=== PATIENT | male | born 1960 | race Caucasian/White ===

== ENCOUNTER → 2017-05-14 08:46 | Outpatient (CLI) | payer MEDICARE, SELFPAY ==
[2017-05-14 14:15] LABS: Alanine Aminotransferase 40 U/L (12-78); Albumin Level 3.2 gm/dL (3.4-5.0); Albumin/Globulin Ratio 0.8 (1.1-1.8); Alkaline Phosphatase 143 U/L (46-116); Anion Gap 12.8 mEq/L (5-15); Aspartate Amino Transferase 22 U/L (15-37); Bilirubin,Total 0.7 mg/dL (0.2-1.0); Blood Urea Nitrogen 8 mg/dL (7-18); Calcium 8.2 mg/dL (8.5-10.1); Carbon Dioxide 28 mmol/L (21.0-32.0); Chloride 101 mmol/L (98-107); Cholesterol 143 mg/dL (140-200); Creatinine,Serum 0.87 mg/dL (0.70-1.30); Estimated Glomerular Filt Rate 91 ml/min (>60); GFR (African American) 110 ML/MIN (>60); Globulin 3.9 gm/dl (1.3-3.2); Glucose 144 mg/dL (74-106); HDL Cholesterol 48 mg/dL (27-67); LDL Cholesterol 68 mg/dL (0-130); Potassium 3.8 mmoL/L (3.5-5.1); Sodium 138 mmol/L (136-145); Total Protein,Serum 7.1 gm/dL (6.4-8.2); Triglycerides 137 mg/dL (30-200); VLDL Cholesterol 27 mg/dL (0-40)
[2017-05-14 14:36] LABS: Ethyl Alcohol 0 mg/dL (0-99)
[2017-05-14 14:57] LABS: Basophils % 0.4 % (0.1-2.0); Eosinophils # 0.3 K/mm3 (0.0-0.4); Eosinophils % 3.6 % (0.1-12.0); Hematocrit 42.9 % (42.0-52.0); Hemoglobin 14.2 g/dL (14.1-18.0); Lymphocytes # 2.5 K/mm3 (0.7-4.5); Lymphocytes % 27.4 K/mm3 (10-50); Mean Corpuscular Hemoglobin 29.7 pg (27.0-31.2); Mean Corpuscular Volume 90.1 fl (80-94); Monocytes # 0.4 K/mm3 (0.1-1.0); Monocytes % 4.5 % (1.7-9.3); Neutrophils # 5.8 K/mm3 (1.8-7.8); Neutrophils % 64.1 % (37.0-80.0); Platelet Count 149 K/mm3 (142-424); Red Blood Count 4.77 M/mm3 (4.60-6.20); Red Cell Distribution Width 14.8 % (11.5-17.5)
[2017-05-14 15:57] LABS: INR 1.02 (0.9-1.1)
== END ==
PROVIDERS: PCP Internal Medicine Adolescent Medicine; Visit Provider Internal Medicine Adolescent Medicine
DX: K70.30 Alcoholic cirrhosis of liver without ascites (principal)
CPT/HCPCS: 36415; 80053; 80061; 85025; 85610

== ENCOUNTER → 2017-09-03 08:16 | Outpatient (CLI) | payer MEDICARE, SELFPAY ==
[2017-09-03 14:25] LABS: Alanine Aminotransferase 27 U/L (12-78); Albumin Level 3.1 gm/dL (3.4-5.0); Albumin/Globulin Ratio 0.8 (1.1-1.8); Alkaline Phosphatase 120 U/L (46-116); Anion Gap 11.5 mEq/L (5-15); Aspartate Amino Transferase 26 U/L (15-37); Bilirubin,Total 0.6 mg/dL (0.2-1.0); Blood Urea Nitrogen 8 mg/dL (7-18); Calcium 8.1 mg/dL (8.5-10.1); Carbon Dioxide 29 mmol/L (21.0-32.0); Chloride 101 mmol/L (98-107); Chol/HDL Ratio 3.1 (1-3.5); Cholesterol 144 mg/dL (140-200); Creatinine,Serum 1.01 mg/dL (0.70-1.30); Estimated Glomerular Filt Rate 77 ml/min (>60); GFR (African American) 93 ML/MIN (>60); Globulin 3.9 gm/dl (1.3-3.2); Glucose 138 mg/dL (74-106); HDL Cholesterol 47 mg/dL (27-67); LDL Cholesterol 77 mg/dL (0-130); Potassium 3.5 mmoL/L (3.5-5.1); Sodium 138 mmol/L (136-145); Triglycerides 98 mg/dL (30-200); VLDL Cholesterol 20 mg/dL (0-40)
[2017-09-03 14:49] LABS: Hemoglobin A1C 5.5 % (0.0-7.0)
== END ==
PROVIDERS: Visit Provider Internal Medicine Adolescent Medicine
DX: E11.9 Type 2 diabetes mellitus without complications (principal); E78.5 Hyperlipidemia, unspecified
CPT/HCPCS: 36415; 80053; 80061; 83036

== ENCOUNTER → 2017-09-30 08:02 | Outpatient (CLI) | payer MEDICARE, SELFPAY ==
[2017-09-30 13:27] LABS: Basophils # 0.1 K/mm3 (0-0.2); Basophils % 1.1 % (0.1-2.0); Eosinophils # 0.2 K/mm3 (0.0-0.4); Eosinophils % 2.8 % (0.1-12.0); Hematocrit 43.8 % (42.0-52.0); Lymphocytes # 2.6 K/mm3 (0.7-4.5); Lymphocytes % 46.7 K/mm3 (10-50); Mean Corpuscular Volume 93.8 fl (80-94); Mean Platelet Volume 7.4 fl (7.4-10.4); Monocytes # 0.5 K/mm3 (0.1-1.0); Monocytes % 8.8 % (1.7-9.3); Neutrophils # 2.3 K/mm3 (1.8-7.8); Neutrophils % 40.7 % (37.0-80.0); Platelet Count 145 K/mm3 (142-424); Red Blood Count 4.67 M/mm3 (4.60-6.20); Red Cell Distribution Width 16.6 % (11.5-17.5); White Blood Count 5.6 K/mm3 (4.8-10.8)
[2017-09-30 13:44] LABS: Alanine Aminotransferase 37 U/L (12-78); Albumin Level 2.9 gm/dL (3.4-5.0); Albumin/Globulin Ratio 0.7 (1.1-1.8); Alkaline Phosphatase 133 U/L (46-116); Anion Gap 11.8 mEq/L (5-15); Aspartate Amino Transferase 25 U/L (15-37); Bilirubin,Total 0.5 mg/dL (0.2-1.0); Blood Urea Nitrogen 8 mg/dL (7-18); C-Reactive Protein 2.3 mg/L (0.0-0.9); Calcium 8.5 mg/dL (8.5-10.1); Carbon Dioxide 30 mmol/L (21.0-32.0); Chloride 103 mmol/L (98-107); Creatinine,Serum 0.81 mg/dL (0.70-1.30); Estimated Glomerular Filt Rate 99 ml/min (>60); GFR (African American) 120 ML/MIN (>60); Globulin 3.9 gm/dl (1.3-3.2); Glucose 125 mg/dL (74-106); Potassium 3.8 mmoL/L (3.5-5.1); Sodium 141 mmol/L (136-145); Total Protein,Serum 6.8 gm/dL (6.4-8.2)
[2017-09-30 15:11] LABS: Erythrocyte Sedimentation Rate 16 mm/hr (0-20)
== END ==
PROVIDERS: Visit Provider Nurse Practitioner Family
DX: M06.9 Rheumatoid arthritis, unspecified (principal)
CPT/HCPCS: 36415; 80053; 85025; 85651; 86140; 86480

== ENCOUNTER → 2018-02-21 10:50 | Outpatient (CLI) | payer MEDICARE, SELFPAY ==
--- NOTE | 2018-02-21 10:54 | FL_ITS ---
FL barium swallow modified INDICATION: ITS.REASON: DYSPHAGIA difficulty swallowing. TECHNIQUE following esophageal dilatation 2 months ago. More difficulty with solid foods immediate. Particularly note difficulty swallowing pills TECHNIQUE & FINDINGS: Study performed conjunction with these pathologist Mildred dinh. . 3 minutes 50 seconds fluoroscopy Patient study the lateral projection with video esophagram recording. Various barium consistencies utilized to study swallowing mechanism.. Thin barium from cup, and with straw: No aspiration observed good strength the swallowing mechanism Pudding, puree, Mechanical soft barium on cereal bar and cracker all appears satisfactory: Good strength the swallowing. No residual This was followed by a thin barium Wash Barium pill was ingested with thin barium wash And readily passed with no restriction at the cervical esophagus. However subsequent limited due to the only dilated fluid-filled thoracic esophagus. 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 The barium pill does not pass through the GE junction and remains for prolonged period of time until for the most part disolved and finally does pass at the distal esophagus. It this would imply a significant difficulty with solid foods and the patient's various ingested medications. IMPRESSION: Overall satisfactory strength and coordination of the swallowing mechanism with liquid barium as well as other consistencies studied.. No aspiration. No significant penetration. Normal appearance of the cervical esophagus region However Limited images thoracic esophagus included show marked narrowing at GE junction reflecting the known/reported stricture here.. Fluid-filled distended appearance seen at the entire thoracic esophagus. Liquid material is very slow to pass through this markedly narrowed GE junction region. The pill did not pass GE junction.- Rather lingering distal esophagus until it Eventually disolved. These images do show very significant restriction at GE junction -patient would not appear to be able to pass most solid food nor many of this medication See review recommendations from speech pathology
--- NOTE | 2018-02-21 12:05 | HMH.SLMBS2 ---
Speech & Language Evaluation Speech/Language Mod Barium Swallow Start: 02/21/18 11:49 Freq: once Status: Complete Protocol: Document 02/21/18 11:49 JUAN (Rec: 02/21/18 12:03 JUAN [id number]) MBS Recommendations Diet Dietary Recommendations Regular Referrals/Other Recommended Referrals GI Consult Mod Barium Swallow Impressions Summary and Impressions Oral Phase Impression No Impairment (WFL) Pharyngeal Phase Impression No Impairment (WFL) Speech/Language MBS Assessment/Goals/Plan Assessment Date of Evaluation: 02/21/18 Evaluation Type Initial Certification Assessment/Problems Pt. reports difficuty with swallowing following espophogus stretching about 2 months ago. Increased difficulty with solid foods and meat. Reports pills and food will sometimes go down fine but come back up in to throat after swallowing. Does Patient Qualify for Service No Qualify/Failure Comment No aspiration or penetration of solids or liquids seen on MBS. Recommendations PHYSICIAN CERTIFICATION: The specified therapy services are required, authorized, and reviewed every 30 days. Diet Recommendations Normal Liquid Type Recommendations Normal/Thin SL Swallow Guidelines Standard Aspiration Prec. Dysphagia Swallow Precautions/Strategies Sitting Upright (90 deg) Comment Pt does not qualify for speech therapy services. No aspiration or penetration observed during study. Plan Pt/Guardian verbally ack understanding Yes of dx/prognosis/goals Pt/Guardian verbally ack understanding Yes of/consent to tx prog G -code Required Yes G-CODES ST Current Status [id number] ST Current Status Modifier CI-At least 1% but less than 20% impaired, limited or restricted ST Goal Status [id number] ST Goal Status Modifier CI-At least 1% but less than 20% impaired, limited or restricted Education Instructions provided Pt advised to follow up with re: swallowing difficulty with pills and solid food. Pt/Caregiver able to recall information Able to recall/restate Reinforcement needed No Mod Barium Swallow Setup Exam Setup Radiologist Compa Alas Level of Consciousness Aw
== END ==
PROVIDERS: PCP Internal Medicine Adolescent Medicine; Visit Provider Internal Medicine Adolescent Medicine
DX: R13.10 Dysphagia, unspecified (principal)
CPT/HCPCS: 70371; 92611

== ENCOUNTER 2018-04-29 20:24 | Observation (INO) ==
[2018-04-29 20:59] LABS: Basophils # 0.1 K/mm3 (0-0.2); Basophils % 0.5 % (0.1-2.0); Eosinophils # 0.2 K/mm3 (0.0-0.4); Eosinophils % 1.6 % (0.1-12.0); Hemoglobin 16.3 g/dL (14.1-18.0); Lymphocytes # 2.5 K/mm3 (0.7-4.5); Lymphocytes % 21.5 % (10-50); Mean Corpuscular HGB Conc 32.6 g/dL (31.8-35.4); Mean Corpuscular Hemoglobin 33.4 pg (27.0-31.2); Mean Corpuscular Volume 102.4 fl (80-94); Mean Platelet Volume 8.1 fl (7.4-10.4); Monocytes # 0.9 K/mm3 (0.1-1.0); Monocytes % 7.7 % (1.7-9.3); Neutrophils % 68.7 % (37.0-80.0); Platelet Count 112 K/mm3 (142-424); Red Blood Count 4.88 M/mm3 (4.60-6.20); Red Cell Distribution Width 15.6 % (11.5-17.5); White Blood Count 11.6 K/mm3 (4.8-10.8)
--- NOTE | 2018-04-29 21:07 | Emergency Department Note ---
ED Disposition Clinical Impression: Esophagitis, Hypokalemia Disposition: Admitted as Observation Condition on Discharge: Good Instructions: DI for Diarrhea and Traveler's Diarrhea -- Adult, DI for Diarrhea and Traveler's Diarrhea -- Child, DI for Nausea -- Adult, DI for Nausea -- Child Referrals: Too Lau MD [Primary Care Provider] - - Critical Care Critical Care Time: No Attestation: On 04/29/18, the high probability of a clinically significant, sudden or life th reatening deterioration of the following system(s) required my full and direct attention, intervention and personal management. The time I documented below is in addition to time spent performing reported procedures but includes the following listed in this critical care notation. Medical Decision Making - Medical Records Medical records reviewed: Yes: I reviewed the patient's medical records. - Yury Inquiry Pt receiving controlled substance: No Vital Signs: 04/29/18 20:35 04/29/18 21:05 Temperature 98.8 F Temperature Source Oral Pulse Rate [Right] 135 H 111 H Respiratory Rate 20 Blood Pressure [Right Arm] 149/111 H 149/82 H Blood Pressure Mean [Right Arm] 123 104 02 Sat by Pulse Oximetry 95 - Lab Data Lab results reviewed: Yes: I reviewed the patient's lab results. Lab Results 04/29/18 20:50: Influenza Type A Ag Negative, Influenza Type B Ag Negative 04/29/18 20:52: WBC 11.6 H, RBC 4.88, Hgb 16.3, Hct 50.0, MCV 102.4 H, MCH 33.4 H, MCHC 32.6, RDW 15.6, Plt Count 112 L, MPV 8.1, Neut % (Auto) 68.7, Lymph % (Auto) 21.5, King % (Auto) 7.7, Eos % (Auto) 1.6, Baso % (Auto) 0.5, Neut # (Auto) 8.0 H, Lymph # (Auto) 2.5, King # (Auto) 0.9, Eos # (Auto) 0.2, Baso # (Auto) 0.1 04/29/18 20:52: Sodium 130 L, Potassium 2.6 L*, Chloride 89 L, Carbon Dioxide 24, Anion Gap 19.6 H, BUN 20 H, Creatinine 1.18, Estimated Creat Clear 81, Estimated GFR 64, Est GFR ( Amer) 77, Glucose 127 H, Calcium 8.7, Total Bilirubin 1.2 H, AST 37, ALT 44, Alkaline Phosphatase 147 H, C-Reactive Protein 32.3 H, Total Protein 8.4 H, Albumin 3.0 L, Globulin 5.4 H, Albumin/Globulin Ratio 0.6 L 04/29/18 20:52: ESR 29 H 04/29/18 20:52: Troponin I < 0.02, Amylase 60, Plasma/Serum Alcohol 0 04/29/18 20:52: Lipase 110 04/29/18 21:46: Urine Color Yellow, Urine Appearance Clear, Urine pH 6.0, Ur Specific [place] 1.025, Urine Protein 2+, Urine Glucose (UA) Negative, Urine Ketones 2+, Urine Blood 2+, Urine Nitrate Negative, Urine Bilirubin Negative, Urine Urobilinogen 1.0, Ur Leukocyte Esterase Negative, Urine RBC 5-10, Urine WBC Occasional, Urine Bacteria 1+, Hyaline Casts 3-5, Urine Mucus 1+ Result diagrams: 04/29/18 20:52 04/29/18 20:52 Orders (Tests/Meds): ED MEDICATIONS Generic Name Dose Route Start Last Admin Trade Name Freq PRN Reason Stop Dose Admin Sodium Chloride 1,000 mls @ 999 mls/hr 04/29/18 20:45 04/29/18 21:02 Sod Chlor 0.9% 1000ml Bag IV 04/29/18 21:45 999 mls/hr .Q1H1M DI Administration Sodium Chloride 10 ml 04/29/18 20:40 Saline Flush 10ml Syringe IV 05/29/18 20:39 NEEDED PRN Maintain IV Site Discontinued Medications Generic Name Dose Route Start Last Admin Trade Name Freq PRN Reason Stop Dose Admin Famotidine 20 mg 04/29/18 22:28 04/29/18 22:38 Pepcid 20mg/2ml Vial IV 04/29/18 22:29 20 mg ONCE ONE Administration Metoclopramide HCl 10 mg 04/29/18 22:28 04/29/18 22:38 Reglan 10mg/2ml Vial IVP 04/29/18 22:29 10 mg ONCE ONE Administration Ondansetron HCl 4 mg 04/29/18 20:39 04/29/18 21:02 Zofran 4mg/2ml Vial IV 04/29/18 20:40 4 mg ONCE ONE Administration ORDERS Category Date Time Status CT abdomen pelvis wo con Stat Cat Scan 04/29/18 21:19 Taken Chest XR 2 view (NOT portable) [XR chest 2V] Stat Exams 04/29/18 22:06 Taken Diarrhea Panel, PCR Stat Lab 04/29/18 20:38 Ordered Urinalysis and Microscopic Stat Lab 04/29/18 21:46 Ordered - Radiology Data #1 Image(s): Chest Image Reviewed: Yes I reviewed the patient's radiology image Preliminary Findings: Normal/NAD - CT Data CT Scan: Abdomen, Pelvis Time Received: 23:[address] Reviewed: Yes: I have viewed the radiologist's interpretation Preliminary Findings: Abnormal (see report ) - Physician Consults Physician Consulted: anil Reason -: Admission Nausea/Vomiting/Diarrhea HPI - General Chief complaint: Nausea/Vomiting/Diarrhea Stated complaint: N/V/D since wednesday Time Seen by Provider: 04/29/18 20:45 Mode of Arrival: Ambulatory Limitations: No Limitations Description of Symptoms (Recalled from ER Triage Doc. by RN): Pt states for the last 4 days he has had NVD, denies abdominal pain, fever, or any other s/s. - History of Present Illness HPI Narrative: pt with hx of esophageal disease - pt with no fever but has had diarrhea today w/o blood and has dec po intake with vomiting MD complaint: nausea, vomiting, diarrhea Onset (ago): day(s) Associated Abdominal Pain: Yes Location of pain: epigastric Severity: moderate Associated symptoms: denies other symptoms - Related Data Home Medications Medication Instructions Recorded Confirmed Atorvastatin Calcium [Lipitor 40mg 40 mg PO DAILY 12/31/17 04/29/18 Tablet] Buspirone HCl [Buspar 10mg tablet] 10 mg PO DAILY 12/31/17 04/29/18 Carvedilol [Carvedilol 25mg Tab] 25 mg PO DAILY 12/31/17 04/29/18 Certolizumab Pegol [Cimzia] 400 mg SQ MONTHLY 12/31/17 04/29/18 Citalopram Hydrobromide [Celexa 40 mg PO DAILY 12/31/17 04/29/18 40mg Tablet] Furosemide [Lasix 20mg tab] 20 mg PO DAILY 12/31/17 04/29/18 Hydroxychloroquine Sulfate 200 mg PO BID 12/31/17 04/29/18 [Plaquenil 200mg tablet] Levothyroxine Sodium [Synthroid 50 mcg PO DAILY 12/31/17 04/29/18 50mcg (0.05mg) tab] Metformin HCl [Metformin 500mg 500 mg PO BID 12/31/17 04/29/18 Tablet] Omeprazole [Omeprazole 20mg 20 mg PO DAILY 12/31/17 04/29/18 Capsule] Pregabalin [Lyrica 150mg Cap] 150 mg PO DAILY 12/31/17 04/29/18 Sitagliptin Phosphate [Januvia 100 mg PO DAILY 12/31/17 04/29/18 100mg tablet] Trazodone HCl 200 mg PO DAILY 12/31/17 04/29/18 Hydrocodone/Acetaminophen [Lortab 1 tab PO BID 04/29/18 04/29/18 7.5/325mg tablet] Allergies Allergy/AdvReac Type Severity Reaction Status Date / Time No Known Allergies Allergy Verified 12/31/17 14:03 [facility] History - Hepatitis A Screen Drug use history?: No High risk sexual behaviors?: No History of sexually transmitted infection?: No Currently employed?: No Childcare worker?: No Do you have indoor plumbing?: Yes Do you have electricity?: Yes Attestation statement:: This patient has been screened for Hepatitis A risk factors. I have reviewed the patient's past medical history: Yes Medical History: Reports:: Asthma, Depression, Diabetes Mellitus Type 2, Gastroesophageal Reflux Disease(GERD), Hyperlipidemia, Hypertension Denies:: Diabetes Mellitus Type 1, Internal Pacemaker, Lung Disease, Seizures Other Medical History: Reports: Other (Obesity) Other Surgeries: No: Pacemaker - Social History Smoking Status: Never smoker Alcohol Intake: former Alcohol Intake Frequency:: 3 or more drinks per day - Psychiatric History Expresses thoughts of harming self/others: None Suicide Plan Description: No Plan Pschychiatric History:: Reports:: Depression ROS Obtained: Yes All systems reviewed & no additional complaints - Constitutional Constitutional: Denies fever(s) - Eyes Eyes: Denies change in vision - ENT Ears, Nose, Mouth, and Throat: Denies sore throat - Cardiovascular Cardiovascular: Denies chest pain at rest - Respiratory Respiratory: No cough - Gastrointestinal Gastrointestingal: Reports: diarrhea, nausea, vomiting. Denies: abdominal pain, black, tarry stools - Genitourinary Male Genitourinary: Denies hematuria - Musculoskeletal Musculoskeletal: Denies neck pain - Integumentary/Breasts Skin/Breast: Denies rash - Neurologic Neurologic: Denies seizure-like activity Physical Exam - General General appearance: alert - Head Head exam: normocephalic - Eye Eye exam: Present: PERRL, EOMI, scleral icterus - ENT ENT exam: Present: mucous membranes dry - Neck Neck exam: Present: trachea midline - Respiratory Respiratory exam: Present: normal lung sounds bilaterally. Absent: respiratory distress - Cardiovascular Cardiovascular exam: Present: regular rate, systolic murmur, +S4 - Abdominal Exam Abdominal exam: Present: soft, tenderness Abdominal tenderness: Present: epigastrium, moderate - Extremities Exam Extremities exam: Present: full ROM - Neurological Exam Neurological exam: Present: alert, oriented X3, CN II-XII intact - Psychiatric Psychiatric exam: Present: normal affect - Skin Skin exam: Absent: rash
[2018-04-29 21:13] LABS: Albumin/Globulin Ratio 0.6 (1.1-1.8); Anion Gap 19.6 mEq/L (5-15); Bilirubin,Total 1.2 mg/dL (0.2-1.0); Calcium 8.7 mg/dL (8.5-10.1); Globulin 5.4 gm/dl (1.3-3.2); Total Protein,Serum 8.4 gm/dL (6.4-8.2)
[2018-04-29 21:14] LABS: C-Reactive Protein 32.3 mg/L (0.0-0.9)
[2018-04-29 21:15] LABS: Potassium 2.6 mmoL/L (3.5-5.1)
[2018-04-29 21:51] LABS: Microscopic, Urine URINE MICROSCOPIC (MICROSCOPIC)
[2018-04-29 21:53] LABS: Appearance,Urine CLEAR (Clear); Blood, Urine 2+ (Negative); Color,Urine YELLOW (Yellow); Glucose,Urine (UA) Negative (Negative); Ketones,Urine 2+ (Negative); Leukocyte Esterase,Urine Negative (Negative); Protein,Urine 2+ (Negative); Specific Gravity, Urine 1.025 (1.005-1.030)
[2018-04-29 22:01] LABS: Bacteria,Urine 1+ /lpf; Bilirubin,Urine Negative (Negative); Mucus,Urine 1+ /lpf; WBC,Urine Occasional #/hpf (0-3)
[2018-04-29 22:27] LABS: Amylase 60 U/L (25-115)
[2018-04-29 22:29] LABS: Ethyl Alcohol 0 mg/dL (0-99)
[2018-04-30 06:35] LABS: Anion Gap 18.6 mEq/L (5-15)
[2018-04-30 06:38] LABS: Potassium 2.6 mmoL/L (3.5-5.1)
[2018-04-30 06:50] LABS: Basophils # 0.1 K/mm3 (0-0.2); Basophils % 0.5 % (0.1-2.0); Eosinophils # 0.2 K/mm3 (0.0-0.4); Lymphocytes # 2.5 K/mm3 (0.7-4.5); Lymphocytes % 24.1 % (10-50); Mean Corpuscular HGB Conc 32.3 g/dL (31.8-35.4); Mean Corpuscular Hemoglobin 33.4 pg (27.0-31.2); Mean Corpuscular Volume 103.2 fl (80-94); Mean Platelet Volume 7.6 fl (7.4-10.4); Monocytes % 9.4 % (1.7-9.3); Neutrophils # 6.8 K/mm3 (1.8-7.8); Platelet Count 98 K/mm3 (142-424); Red Blood Count 4.36 M/mm3 (4.60-6.20); Red Cell Distribution Width 15.7 % (11.5-17.5); White Blood Count 10.6 K/mm3 (4.8-10.8)
[2018-04-30 06:56] LABS: Calcium 7.8 mg/dL (8.5-10.1)
[2018-04-30 07:00] LABS: Hemoglobin 14.6 g/dL (14.1-18.0)
--- NOTE | 2018-04-30 10:37 | Pharmacy Consult Notes ---
[facility] Pharmacy VTE Monitoring - Patient Demographics Admission date: 04/30/18 Report Date: 04/30/18 Time: 10:36 Allergies/Adverse Reactions: Patient Allergies No Known Allergies Allergy (Verified 12/31/17 14:03) Height: 1.73 m Weight: 85.757 kg Patient Problems: Current Active Problems Esophagitis (Acute) Hypokalemia (Acute) - VTE Risk Labs: VTE Related Lab Results Hgb 14.6 g/dL (14.1-18.0) D 04/30/18 05:30 Hct 45.0 % (42.0-52.0) 04/30/18 05:30 Plt Count 98 K/mm3 (142-424) L 04/30/18 05:30 BUN 17 mg/dL (7-18) 04/30/18 05:30 Creatinine 1.05 mg/dL (0.70-1.30) 04/30/18 05:30 Estimated Creat Clear 95 mL/min (50-200) 04/30/18 05:30 VTE Score: 4 VTE Risk Level: Low Risk - Prophylaxis Location of Applied Device: Bilateral Lower Extremeties (SUSAN HOSE)
--- NOTE | 2018-04-30 11:45 | H&P/Discharge Summary ---
General - General Admission date:: 04/29/18 Discharge date: 04/30/18 *Admission Date: 04/30/18 *Chief complaint: Nausea, vomiting, dehydration *History of present illness: Mr. Vazquez is a pleasant 58-year-old with history of chronic arthritis who presents with 4 days of gastroenteritis symptoms including diarrhea, nausea, vomiting. Unable to keep anything down at home. Presented to the ER where he was found to have hypokalemia, mild dehydration, and metabolic acidosis. Admitted for fluid rehydration and bowel rest. This morning tolerating p.o. fluids and small amounts of a regular diet. Had no further episodes of diarrhea or emesis during admission. Still feels weak, complains of some arthritic pain due to missing his home medications for the past 4-5 days with his illness. Otherwise denies abdominal pain, chest pain, shortness of breath. [facility] History I have reviewed the patient's past medical history: Yes Medical History: Reports:: Asthma, Depression, Diabetes Mellitus Type 2, Gastroesophageal Reflux Disease(GERD), Hyperlipidemia, Hypertension Denies:: Diabetes Mellitus Type 1, Internal Pacemaker, Lung Disease, Seizures Other Medical History: Reports: Other (Obesity) Other Surgeries: No: Pacemaker - *Social History Educational Level: Completed High School Smoking Status: Never smoker Alcohol Intake: former Alcohol Intake Frequency:: 3 or more drinks per day Occupational Status: disabled - Psychiatric History Expresses thoughts of harming self/others: None Suicide Plan Description: No Plan Pschychiatric History:: Reports:: Depression *Family Hx:: Anemia, Hyperlipidemia, Hypertension Review of Systems - Review of Systems Review of systems:: pertinent systems reviewed and negative unless documented below - *Neurologic Denies seizure-like activity Exam Vital signs and Labs for Last 24 Hours: Temp Pulse Resp BP Pulse Ox 98.6 F 84 20 162/85 H 94 L 04/30/18 11:13 04/30/18 11:13 04/30/18 11:13 04/30/18 11:13 04/30/18 11:13 Laboratory Results - last 24 hr 04/29/18 20:50: Influenza Type A Ag Negative, Influenza Type B Ag Negative 04/29/18 20:52: WBC 11.6 H, RBC 4.88, Hgb 16.3, Hct 50.0, MCV 102.4 H, MCH 33.4 H, MCHC 32.6, RDW 15.6, Plt Count 112 L, MPV 8.1, Neut % (Auto) 68.7, Lymph % (Auto) 21.5, Emanuel % (Auto) 7.7, Eos % (Auto) 1.6, Baso % (Auto) 0.5, Neut # (Auto) 8.0 H, Lymph # (Auto) 2.5, Emanuel # (Auto) 0.9, Eos # (Auto) 0.2, Baso # (Auto) 0.1 04/29/18 20:52: Sodium 130 L, Potassium 2.6 L*, Chloride 89 L, Carbon Dioxide 24, Anion Gap 19.6 H, BUN 20 H, Creatinine 1.18, Estimated Creat Clear 81, Estimated GFR 64, Est GFR ( Amer) 77, Glucose 127 H, Calcium 8.7, Total Bilirubin 1.2 H, AST 37, ALT 44, Alkaline Phosphatase 147 H, C-Reactive Protein 32.3 H, Total Protein 8.4 H, Albumin 3.0 L, Globulin 5.4 H, Albumin/Globulin Ratio 0.6 L 04/29/18 20:52: ESR 29 H 04/29/18 20:52: Troponin I < 0.02, Amylase 60, Plasma/Serum Alcohol 0 04/29/18 20:52: Lipase 110 04/29/18 21:46: Urine Color Yellow, Urine Appearance Clear, Urine pH 6.0, Ur Specific [place] 1.025, Urine Protein 2+, Urine Glucose (UA) Negative, Urine Ketones 2+, Urine Blood 2+, Urine Nitrate Negative, Urine Bilirubin Negative, Urine Urobilinogen 1.0, Ur Leukocyte Esterase Negative, Urine RBC 5-10, Urine WBC Occasional, Urine Bacteria 1+, Hyaline Casts 3-5, Urine Mucus 1+ 04/30/18 02:35: Troponin I < 0.02 04/30/18 05:30: Troponin I < 0.02 04/30/18 05:30: WBC 10.6, RBC 4.36 L, Hgb 14.6 D, Hct 45.0, MCV 103.2 H, MCH 33.4 H, MCHC 32.3, RDW 15.7, Plt Count 98 L, MPV 7.6, Neut % (Auto) 64.0, Lymph % (Auto) 24.1, Emanuel % (Auto) 9.4 H, Eos % (Auto) 2.0, Baso % (Auto) 0.5, Neut # (Auto) 6.8, Lymph # (Auto) 2.5, Emanuel # (Auto) 1.0, Eos # (Auto) 0.2, Baso # (Auto) 0.1 04/30/18 05:30: Sodium 132 L, Potassium 2.6 L*, Chloride 94 L, Carbon Dioxide 22, Anion Gap 18.6 H, BUN 17, Creatinine 1.05, Estimated Creat Clear 95, Estima hannah GFR 73, Est GFR ( Amer) 88, Glucose 107 H, Calcium 7.8 L D, Magnesium 0.7 L 04/30/18 05:45: POC Glucose 99 I & O for Last 24 hours: Intake & Output 04/27/18 04/28/18 04/29/18 04/30/18 23:59 23:59 23:59 23:59 Intake Total 482 / 482 Balance 482 / 482 Weight 82.3 kg 85.757 kg - *Routine HEENT Exam Head: Present: normocephalic, atraumatic Eye: Present: EOMI, PERRL ENT: Present: mucous membranes moist - *Routine Neck Exam Present: supple. Absent: JVD - *Routine Respiratory Exam Present: CTA bilaterally. Absent: prolonged expiratory phase, wheezes, crackles - *Routine Cardiovascular Exam Present: RRR, Normal S1, Normal S2. Absent: murmur - *Routine Abdominal Exam Present: soft, normoactive bowel sounds. Absent: tenderness - *Routine Rectal Exam Patient deferred: visual exam - *Routine Exam Patient deferred: penile exam - *Routine Extremities Exam Absent: cyanosis, clubbing, edema Comments: Multiple joints tender to pain with chronic arthritic changes in elbows, fingers - *Routine Skin Exam Present: intact. Absent: cyanosis, erythema - *Routine Neurological Exam Present: alert, oriented X3. Absent: altered mental status Hospital Course Hospital Course: Admitted for electrolyte repletion, IV fluids, bowel rest. Magnesium and potassium replaced. Tolerating p.o. intake without further episodes. Hemodynamically stable. Results Labs on day of discharge: Labs from last 24 hours 04/30/18 04/30/18 04/30/18 05:45 05:30 05:30 WBC 10.6 RBC 4.36 L Hgb 14.6 D Hct 45.0 MCV 103.2 H MCH 33.4 H MCHC 32.3 RDW 15.7 Plt Count 98 L MPV 7.6 Neut % (Auto) 64.0 Lymph % (Auto) 24.1 Emanuel % (Auto) 9.4 H Eos % (Auto) 2.0 Baso % (Auto) 0.5 Neut # (Auto) 6.8 Lymph # (Auto) 2.5 Emanuel # (Auto) 1.0 Eos # (Auto) 0.2 Baso # (Auto) 0.1 ESR Sodium 132 L Potassium 2.6 L* Chloride 94 L Carbon Dioxide 22 Anion Gap 18.6 H BUN 17 Creatinine 1.05 Estimated Creat Clear 95 Estimated GFR 73 Est GFR ( Amer) 88 Glucose 107 H POC Glucose 99 Calcium 7.8 L D Magnesium 0.7 L Total Bilirubin AST ALT Alkaline Phosphatase Troponin I C-Reactive Protein Total Protein Albumin Globulin Albumin/Globulin Ratio Amylase Lipase Urine Color Urine Appearance Urine pH Ur Specific [place] Urine Protein Urine Glucose (UA) Urine Ketones Urine Blood Urine Nitrate Urine Bilirubin Urine Urobilinogen Ur Leukocyte Esterase Urine RBC Urine WBC Urine Bacteria Hyaline Casts Urine Mucus Plasma/Serum Alcohol Influenza Type A Ag Influenza Type B Ag 04/30/18 04/30/18 04/29/18 05:30 02:35 21:46 WBC RBC Hgb Hct MCV MCH MCHC RDW Plt Count MPV Neut % (Auto) Lymph % (Auto) Emanuel % (Auto) Eos % (Auto) Baso % (Auto) Neut # (Auto) Lymph # (Auto) Emanuel # (Auto) Eos # (Auto) Baso # (Auto) ESR Sodium Potassium Chloride Carbon Dioxide Anion Gap BUN Creatinine Estimated Creat Clear Estimated GFR Est GFR ( Amer) Glucose POC Glucose Calcium Magnesium Total Bilirubin AST ALT Alkaline Phosphatase Troponin I < 0.02 < 0.02 C-Reactive Protein Total Protein Albumin Globulin Albumin/Globulin Ratio Amylase Lipase Urine Color Yellow Urine Appearance Clear Urine pH 6.0 Ur Specific [place] 1.025 Urine Protein 2+ Urine Glucose (UA) Negative Urine Ketones 2+ Urine Blood 2+ Urine Nitrate Negative Urine Bilirubin Negative Urine Urobilinogen 1.0 Ur Leukocyte Esterase Negative Urine RBC 5-10 Urine WBC Occasional Urine Bacteria 1+ Hyaline Casts 3-5 Urine Mucus 1+ Plasma/Serum Alcohol Influenza Type A Ag Influenza Type B Ag 04/29/18 04/29/18 04/29/18 20:52 20:52 20:52 WBC RBC Hgb Hct MCV MCH MCHC RDW Plt Count MPV Neut % (Auto) Lymph % (Auto) Emanuel % (Auto) Eos % (Auto) Baso % (Auto) Neut # (Auto) Lymph # (Auto) Emanuel # (Auto) Eos # (Auto) Baso # (Auto) ESR 29 H Sodium Potassium Chloride Carbon Dioxide Anion Gap BUN Creatinine Estimated Creat Clear Estimated GFR Est GFR ( Amer) Glucose POC Glucose Calcium Magnesium Total Bilirubin AST ALT Alkaline Phosphatase Troponin I < 0.02 C-Reactive Protein Total Protein Albumin Globulin Albumin/Globulin Ratio Amylase 60 Lipase 110 Urine Color Urine Appearance Urine pH Ur Specific [place] Urine Protein Urine Glucose (UA) Urine Ketones Urine Blood Urine Nitrate Urine Bilirubin Urine Urobilinogen Ur Leukocyte Esterase Urine RBC Urine WBC Urine Bacteria Hyaline Casts Urine Mucus Plasma/Serum Alcohol 0 Influenza Type A Ag Influenza Type B Ag 04/29/18 04/29/18 04/29/18 20:52 20:52 20:50 WBC 11.6 H RBC 4.88 Hgb 16.3 Hct 50.0 MCV 102.4 H MCH 33.4 H MCHC 32.6 RDW 15.6 Plt Count 112 L MPV 8.1 Neut % (Auto) 68.7 Lymph % (Auto) 21.5 Emanuel % (Auto) 7.7 Eos % (Auto) 1.6 Baso % (Auto) 0.5 Neut # (Auto) 8.0 H Lymph # (Auto) 2.5 Emanuel # (Auto) 0.9 Eos # (Auto) 0.2 Baso # (Auto) 0.1 ESR Sodium 130 L Potassium 2.6 L* Chloride 89 L Carbon Dioxide 24 Anion Gap 19.6 H BUN 20 H Creatinine 1.18 Estimated Creat Clear 81 Estimated GFR 64 Est GFR ( Amer) 77 Glucose 127 H POC Glucose Calcium 8.7 Magnesium Total Bilirubin 1.2 H AST 37 ALT 44 Alkaline Phosphatase 147 H Troponin I C-Reactive Protein 32.3 H Total Protein 8.4 H Albumin 3.0 L Globulin 5.4 H Albumin/Globulin Ratio 0.6 L Amylase Lipase Urine Color Urine Appearance Urine pH Ur Specific [place] Urine Protein Urine Glucose (UA) Urine Ketones Urine Blood Urine Nitrate Urine Bilirubin Urine Urobilinogen Ur Leukocyte Esterase Urine RBC Urine WBC Urine Bacteria Hyaline Casts Urine Mucus Plasma/Serum Alcohol Influenza Type A Ag Negative Influenza Type B Ag Negative DS: Diagnosis - Discharge Diagnosis (1) Gastroenteritis Status: Acute Problem details: Resolving, unclear etiology however no further symptoms. Tolerating p.o. intake. (2) Hypomagnesemia Status: Acute Problem details: Placed via IV. (3) Hypokalemia Status: Acute Problem details: Replace with oral. Initiate multivitamin on discharge Discharge Medications - Medications for Discharge Home Medication List at Discharge: Continue Citalopram Hydrobromide [Celexa 40mg Tablet] 40 mg PO DAILY Carvedilol [Carvedilol 25mg Tab] 25 mg PO BID Buspirone HCl [Buspar 10mg tablet] 10 mg PO BID Pregabalin [Lyrica 150mg Cap] 150 mg PO BID Omeprazole [Omeprazole 20mg Capsule] 20 mg PO DAILY Certolizumab Pegol [Cimzia] 400 mg SQ MONTHLY Trazodone HCl 200 mg PO HS Hydroxychloroquine Sulfate [Plaquenil 200mg tablet] 200 mg PO BID Sitagliptin Phosphate [Januvia 100mg tablet] 100 mg PO DAILY Metformin HCl [Metformin 500mg Tablet] 500 mg PO BID Levothyroxine Sodium [Synthroid 50mcg (0.05mg) tab] 50 mcg PO DAILY Hydrocodone/Acetaminophen [Lortab 7.5/325mg tablet] 1 tab PO BID Atorvastatin Calcium [Lipitor 40mg Tablet] 40 mg PO HS Discontinued Furosemide [Lasix 20mg tab] 20 mg PO DAILY Disposition Disposition: Home, Self-Care
[2018-04-30 13:27] LABS: Albumin Level 2.6 gm/dL (3.4-5.0); Albumin/Globulin Ratio 0.6 (1.1-1.8); Anion Gap 13.8 mEq/L (5-15); Bilirubin,Total 0.9 mg/dL (0.2-1.0); Calcium 7.8 mg/dL (8.5-10.1); Globulin 4.3 gm/dl (1.3-3.2); Phosphorous 2.2 mg/dL (2.4-4.9); Total Protein,Serum 6.9 gm/dL (6.4-8.2)
[2018-04-30 13:40] LABS: Potassium 2.8 mmoL/L (3.5-5.1)
== END 2018-04-30 14:40 | disposition home or self-care (01) ==
LOC: 2ND 20:24 → ER 20:24 → 2ND 23:47
PROVIDERS: ADMIT Family Medicine; ATTEND Internal Medicine Adolescent Medicine
DX: M19.90 Unspecified osteoarthritis, unspecified site; E83.42 Hypomagnesemia; Z83.438 Family history of other disorder of lipoprotein metabolism and other lipidemia; E87.6 Hypokalemia; Z83.2 Family history of diseases of the blood and blood-forming organs and certain disorders involving the immune mechanism; I10 Essential (primary) hypertension; Z79.84 Long term (current) use of oral hypoglycemic drugs; Z79.890 Hormone replacement therapy; K21.9 Gastro-esophageal reflux disease without esophagitis; E11.9 Type 2 diabetes mellitus without complications; Z82.49 Family history of ischemic heart disease and other diseases of the circulatory system; J45.909 Unspecified asthma, uncomplicated; Z79.899 Other long term (current) drug therapy; K52.9 Noninfective gastroenteritis and colitis, unspecified; F32.9 Major depressive disorder, single episode, unspecified; E86.0 Dehydration; E78.5 Hyperlipidemia, unspecified; Z79.891 Long term (current) use of opiate analgesic; E87.2 Acidosis
CPT/HCPCS: 36415; 71020; 71046; 74176; 80048; 80053; 81001; 82150; 82962; 83690; 83735; 84100; 84484; 85025; 85651; 86140; 87275; 87276; 96365; 96366; 96375; 99284; G0378; J2405

== ENCOUNTER → 2018-05-18 09:50 | Outpatient (CLI) | payer MEDICARE, SELFPAY ==
[2018-05-18 13:46] LABS: Anion Gap 12.2 mEq/L (5-15); Blood Urea Nitrogen 10 mg/dL (7-18); Carbon Dioxide 28 mmol/L (21.0-32.0); Chloride 103 mmol/L (98-107); Creatinine,Serum 0.96 mg/dL (0.70-1.30); Estimated Glomerular Filt Rate 81 ml/min (>60); GFR (African American) 98 ML/MIN (>60); Glucose 119 mg/dL (74-106); Magnesium 1.6 mg/dL (1.4-2.2); Potassium 4.2 mmoL/L (3.5-5.1); Sodium 139 mmol/L (136-145)
== END ==
PROVIDERS: PCP Internal Medicine Adolescent Medicine; Visit Provider Internal Medicine Adolescent Medicine
DX: E83.42 Hypomagnesemia (principal)
CPT/HCPCS: 36415; 80048; 83735

== ENCOUNTER → 2018-07-20 08:10 | Outpatient (CLI) | payer MEDICARE, SELFPAY ==
[2018-07-20 14:06] LABS: Basophils % 0.6 % (0.1-2.0); Eosinophils # 0.4 K/mm3 (0.0-0.4); Eosinophils % 5.7 % (0.1-12.0); Hematocrit 42.2 % (42.0-52.0); Hemoglobin 13.5 g/dL (14.1-18.0); Lymphocytes # 2.4 K/mm3 (0.7-4.5); Lymphocytes % 38.7 % (10-50); Mean Corpuscular Hemoglobin 30.2 pg (27.0-31.2); Mean Corpuscular Volume 94.6 fl (80-94); Mean Platelet Volume 7.4 fl (7.4-10.4); Monocytes # 0.3 K/mm3 (0.1-1.0); Monocytes % 4.7 % (1.7-9.3); Neutrophils # 3.1 K/mm3 (1.8-7.8); Neutrophils % 50.3 % (37.0-80.0); Platelet Count 138 K/mm3 (142-424); Red Blood Count 4.46 M/mm3 (4.60-6.20); White Blood Count 6.2 K/mm3 (4.8-10.8)
[2018-07-20 14:39] LABS: Alanine Aminotransferase 16 U/L (12-78); Albumin Level 3.3 gm/dL (3.4-5.0); Albumin/Globulin Ratio 0.8 (1.1-1.8); Alkaline Phosphatase 66 U/L (46-116); Amylase 143 U/L (25-115); Anion Gap 13.8 mEq/L (5-15); Aspartate Amino Transferase 15 U/L (15-37); Bilirubin,Total 0.5 mg/dL (0.2-1.0); Blood Urea Nitrogen 8 mg/dL (7-18); Calcium 8.6 mg/dL (8.5-10.1); Carbon Dioxide 26 mmol/L (21.0-32.0); Chloride 105 mmol/L (98-107); Cholesterol 139 mg/dL (140-200); Estimated Glomerular Filt Rate 87 ml/min (>60); GFR (African American) 106 ML/MIN (>60); Globulin 4.1 gm/dl (1.3-3.2); Glucose 100 mg/dL (74-106); HDL Cholesterol 46 mg/dL (27-67); LDL Cholesterol 50 mg/dL (0-130); Lipase 137 u/L (73-393); Potassium 3.8 mmoL/L (3.5-5.1); Sodium 141 mmol/L (136-145); Total Protein,Serum 7.4 gm/dL (6.4-8.2); Triglycerides 217 mg/dL (30-200); VLDL Cholesterol 43 mg/dL (0-40)
== END ==
PROVIDERS: PCP Internal Medicine Adolescent Medicine; Visit Provider Internal Medicine Adolescent Medicine
DX: I10 Essential (primary) hypertension (principal); E78.5 Hyperlipidemia, unspecified; E11.9 Type 2 diabetes mellitus without complications; K21.9 Gastro-esophageal reflux disease without esophagitis; Z79.84 Long term (current) use of oral hypoglycemic drugs
CPT/HCPCS: 36415; 80053; 80061; 82150; 83690; 85025

== ENCOUNTER → 2018-10-26 10:32 | Outpatient (CLI) | payer MEDICARE, SELFPAY ==
[2018-10-26 14:19] LABS: Basophils # 0.1 K/mm3 (0-0.2); Basophils % 0.8 % (0.1-2.0); Eosinophils # 0.4 K/mm3 (0.0-0.4); Eosinophils % 4.9 % (0.1-12.0); Hematocrit 38.4 % (42.0-52.0); Hemoglobin 11.7 g/dL (14.1-18.0); Lymphocytes # 3.1 K/mm3 (0.7-4.5); Lymphocytes % 40.6 % (10-50); Mean Corpuscular HGB Conc 30.5 g/dL (31.8-35.4); Mean Corpuscular Hemoglobin 28.9 pg (27.0-31.2); Mean Corpuscular Volume 94.8 fl (80-94); Mean Platelet Volume 7.7 fl (7.4-10.4); Monocytes # 0.4 K/mm3 (0.1-1.0); Monocytes % 5.7 % (1.7-9.3); Neutrophils # 3.7 K/mm3 (1.8-7.8); Neutrophils % 48.1 % (37.0-80.0); Platelet Count 242 K/mm3 (142-424); Red Blood Count 4.05 M/mm3 (4.60-6.20); White Blood Count 7.7 K/mm3 (4.8-10.8)
[2018-10-26 14:50] LABS: Alanine Aminotransferase 28 U/L (12-78); Albumin Level 2.5 gm/dL (3.4-5.0); Albumin/Globulin Ratio 0.6 (1.1-1.8); Alkaline Phosphatase 113 U/L (46-116); Anion Gap 12.5 mEq/L (5-15); Aspartate Amino Transferase 17 U/L (15-37); Bilirubin,Total 0.3 mg/dL (0.2-1.0); Blood Urea Nitrogen 7 mg/dL (7-18); Calcium 8.2 mg/dL (8.5-10.1); Carbon Dioxide 25 mmol/L (21.0-32.0); Chloride 107 mmol/L (98-107); Chol/HDL Ratio 3.8 (1-3.5); Cholesterol 100 mg/dL (140-200); Creatinine,Serum 1.15 mg/dL (0.70-1.30); Estimated Glomerular Filt Rate 66 ml/min (>60); Free Thyroxine Index 2.1 ug/dL (5.93-13.13); GFR (African American) 80 ML/MIN (>60); Globulin 4.2 gm/dl (1.3-3.2); Glucose 86 mg/dL (74-106); HDL Cholesterol 26 mg/dL (27-67); LDL Cholesterol 55 mg/dL (0-130); Potassium 4.5 mmoL/L (3.5-5.1); Sodium 140 mmol/L (136-145); T4 (Thyroxine) 5.9 ug/dl (4.7-13.3); Thyroid Stimulating Hormone 3.41 uIU/ml (0.358-3.740); Total Protein,Serum 6.7 gm/dL (6.4-8.2); Triglycerides 94 mg/dL (30-200); Triiodothryronine (T3) Uptake 35 % (31-39); VLDL Cholesterol 19 mg/dL (0-40)
[2018-10-26 16:27] LABS: Hemoglobin A1C 5.8 % (0.0-7.0)
== END ==
PROVIDERS: PCP Internal Medicine Adolescent Medicine; Visit Provider Internal Medicine Adolescent Medicine
DX: E11.9 Type 2 diabetes mellitus without complications (principal); Z79.84 Long term (current) use of oral hypoglycemic drugs; K52.9 Noninfective gastroenteritis and colitis, unspecified; K20.9 Esophagitis, unspecified
CPT/HCPCS: 36415; 80053; 80061; 83036; 84436; 84443; 84479; 85025

== ENCOUNTER → 2018-11-07 12:11 | Outpatient (CLI) | payer MEDICARE, SELFPAY ==
--- NOTE | 2018-11-07 12:17 | XR_ITS ---
XR ankle RT min 3V HISTORY: ITS.REASON: RT ANKLE PAIN following injury ORDERING PHYSICIAN: Too Lau MD PATIENT AGE: 58 years Comparison: None FINDINGS: There is an oblique minimally displaced fracture of the distal fibula. The fracture exits medially at the tibiotalar joint space. There is 2 mm lateral displacement of the distal fracture fragment. There is generalized vascular calcification. The ankle mortise does not appear widened. IMPRESSION: Minimally displaced distal fibular fracture
--- NOTE | 2018-11-07 12:17 | XR_ITS ---
XR foot RT min 3V HISTORY: Pain following injury ITS.REASON: RT ANKLE PAIN ORDERING PHYSICIAN: Too Lau MD PATIENT AGE: 58 years COMPARISON: None FINDINGS: There is mild hallux valgus. Generalized vascular calcification. No foot fracture evident. There is nondisplaced oblique fracture of the distal fibula. IMPRESSION: Distal fibular fracture, no acute finding of the foot
--- NOTE | 2018-11-07 14:14 | US_ITS ---
US Arterial Lower Ext Rest History: ITS.REASON: Decreased pulses a surgical planning; decreased pedal pulses ORDERING PHYSICIAN: Caitlin Morgan DPM PATIENT AGE: 58 years TECHNIQUE: Segmental pressures obtained of both right and left leg. These are compared to brachial blood pressure to yield index at each level sampled including summary MATTHEW. The data sheets from the procedure are available in PACS FINDINGS Rest study only performed today No prior studies available for comparison. Blood pressures reported are in millimeters mercury. RIGHT LEG MATTHEW = 1.5. RIGHT LEG TBI=.8 Brachial BP: 128 Thigh BP: 212 Calf BP: >254 Ankle PT: 192 Ankle DP : 164 Digit =100 LEFT LEG MATTHEW = .9 LEFT LEG TBI= .8 Brachial BPD: 122 Thigh BP: 190 Calf BP: >254 Ankle PT:247 Ankle DP: >254 Digit = 106 Pulses and waveforms: Normal IMPRESSION: The right MATTHEW is high suggesting hardening/calcification of the arteries as seen with diabetes. Several vessels are also noncompressible also in keeping with hardening of the arteries. The left MATTHEW and the bilateral TBI s are within normal limits
--- NOTE | 2018-11-07 16:37 | XR_ITS ---
XR chest 2V HISTORY: ITS.REASON: HTN, ORDERING PHYSICIAN: Caitlin Morgan DPM PATIENT AGE: 58 years COMPARISON: 04/29/2018 FINDINGS: The cardiomediastinal silhouette and pulmonary vascularity are within normal limits. COPD changes. In the right lung base medially there is a 15 mm oval opacity not readily apparent on the previous exams. This could represent a summation density. Cannot exclude the possibility of a developing pulmonary nodule. Chest CT may be of further value. No lobar consolidation or collapse. No acute bony findings. IMPRESSION: 1. No acute finding. 2. 15 mm nodular opacity right lung base which could be due to summation artifact or developing pulmonary nodule. Not readily apparent on the previous exams. Similar chest CT for further evaluation
[2018-11-10 20:01] LABS: Vitamin D 25 Hydroxy 37.7 ng/mL (30.0-100.0)
== END ==
PROVIDERS: PCP Internal Medicine Adolescent Medicine; Visit Provider Podiatrist
DX: R09.89 Other specified symptoms and signs involving the circulatory and respiratory systems (principal); M25.571 Pain in right ankle and joints of right foot
CPT/HCPCS: 36415; 71046; 73610; 73630; 82652; 93005; 93923

== ENCOUNTER → 2018-11-28 15:34 | Outpatient (CLI) | payer MEDICARE, SELFPAY ==
--- NOTE | 2018-11-28 15:40 | XR_ITS ---
XR ankle wt bearing RT min 3V HISTORY: Follow-up surgery ITS.REASON: Post-op views ORDERING PHYSICIAN: Caitlin Morgan DPM PATIENT AGE: 58 years Comparison: 11/09/2018 FINDINGS: Status post ORIF distal fibula with lateral bone plate and an additional oblique screw stabilizing the distal fibular fracture which is in good alignment. Posterior splint remains in place. IMPRESSION: No change status post ORIF distal fibula with good alignment
== END ==
PROVIDERS: PCP Internal Medicine Adolescent Medicine; Visit Provider Podiatrist
DX: Z98.890 Other specified postprocedural states (principal)
CPT/HCPCS: 73610

== ENCOUNTER → 2018-12-20 10:09 | Outpatient (CLI) | payer MEDICARE, SELFPAY ==
--- NOTE | 2018-12-20 10:22 | XR_ITS ---
PROCEDURE: XR ANKLE WT BEARING RT MIN 3V CLINICAL INDICATION: post-op Follow-up surgery COMPARISON: from 11/28/2018 FINDINGS: Status post ORIF of the distal fibula. Bone plate and screws remain in place. Fracture line is still visible nondisplaced. The spleen is been removed. IMPRESSION: Removal of the splint otherwise no change status post ORIF distal fibula with good alignment Dictated by: Eulogio Rodriguez MD 12/20/2018 10:54 Signed by: <Electronically signed by Eulogio Rodriguez MD in [place]> 12/20/2018 10:54
== END ==
LOC: RAD 10:11
PROVIDERS: PCP Internal Medicine Adolescent Medicine; Visit Provider Podiatrist
DX: Z98.890 Other specified postprocedural states (principal)
CPT/HCPCS: 73610

== ENCOUNTER → 2019-01-03 10:28 | Outpatient (CLI) | payer MEDICARE, SELFPAY ==
--- NOTE | 2019-01-03 10:32 | XR_ITS ---
PROCEDURE: XR ANKLE WT BEARING RT MIN 3V CLINICAL INDICATION: post-op Follow-up ORIF distal fibular fracture COMPARISON: XR ANKLE WT BEARING RT MIN 3V from 12/20/2018 FINDINGS: Lateral bone plate once again noted over the distal fibula with multiple screws with good alignment of the bony fragments. There is diffuse vascular calcification. IMPRESSION: No change good alignment status post ORIF distal fibular fracture Dictated by: Eulogio Rodriguez MD 01/03/2019 17:11 Electronically signed by Eulogio Rodriguez MD in [place] 01/03/2019 17:11
== END ==
LOC: RAD 10:30
PROVIDERS: PCP Internal Medicine Adolescent Medicine; Visit Provider Podiatrist
DX: Z98.890 Other specified postprocedural states (principal); M25.571 Pain in right ankle and joints of right foot
CPT/HCPCS: 73610

== ENCOUNTER 2019-01-18 10:00 | Outpatient (RCR) | payer MEDICARE, SELFPAY ==
--- NOTE | 2019-01-16 11:32 | HMH.PTOPEV ---
PT Outpatient Evaluation Rehab PT Outpatient Evaluation Start: 01/16/19 10:56 Freq: Status: Active Protocol: Document 01/16/19 10:56 [email or web address] (Rec: 01/16/19 11:32 PDESEROUX [id number]) Electronically Signed By Darrian Stephens, PT 01/16/19 10:56 Outpatient Therapy Subjective History Subjective History Pt. is a 58 year old male who presents to outpatient PT for complaints of chronic and activity dependent R lateral ankle P! s /p R ORIF distal fibular fracture 9 weeks from tomorrow. Pt. reports tripping over and falling onto his foot while letting his dogs out the backdoor. Pt. reports NWB for 8 wks. post surgery with CAM bt./axillary crutches, WBAT on the 9th wk. with CAM bt. and no axillary cruthces. Pt. reports MD wants to wean from CAM bt. into brace per pt. tolerance. Pt. RTMD 02/18/19. Recent diagnostic imaging positive for good alignment status post ORIF distal fibular fracture. Current medication list includes Dexamethasone, Fentanyl Citrate, Lidocaine, Midazolam, Ondansetron, Propofol, and Sevoflurane. PMH includes Vasectomy, L wrist surgical reconstruction, LUE digit skin graft, RA, diabetic neuropathy, type II diabetes, mild COPD, alcoholism, and Hypothyroidism. Chief Complaint Pain,Stiff,Swelling Symptom Type Ache,Dull Symptoms Relieved By Rest/Positioning,Ice,Brace/ Support Symptoms Aggravated By Standing,Physical Activity, Walking Prior Functional Limitations None Current Functional Limitations Dressing,Standing,Walking, Stairs,Balance Symptom Description Activity Dependent Level of pain today (0-10) 0 Pain scale - at its best (0-10) 0 Pain scale - at its worst (0-10) 6 Ankle/Foot Eval Gait Observation General Gait Pattern Observation Antalgic Gait,Wide Based Gait,
== END 2019-02-08 15:30 | disposition home or self-care (01) ==
LOC: PT.CARL 10:00
PROVIDERS: PCP Internal Medicine Adolescent Medicine; Visit Provider Podiatrist
DX: M25.571 Pain in right ankle and joints of right foot (principal); S99.911A Unspecified injury of right ankle, initial encounter
CPT/HCPCS: 97110; 97163; 97760

== ENCOUNTER → 2019-01-18 10:20 | Outpatient (CLI) | payer MEDICARE, SELFPAY ==
[2019-01-18 14:04] LABS: Basophils % 0.5 % (0.1-2.0); Eosinophils # 0.2 K/mm3 (0.0-0.4); Eosinophils % 2.5 % (0.1-12.0); Hematocrit 43.8 % (42.0-52.0); Hemoglobin 13.3 g/dL (14.1-18.0); Lymphocytes # 1.7 K/mm3 (0.7-4.5); Lymphocytes % 27.1 % (10-50); Mean Corpuscular HGB Conc 30.5 g/dL (31.8-35.4); Mean Corpuscular Hemoglobin 29.6 pg (27.0-31.2); Mean Platelet Volume 7.4 fl (7.4-10.4); Monocytes # 0.6 K/mm3 (0.1-1.0); Monocytes % 8.9 % (1.7-9.3); Neutrophils # 3.8 K/mm3 (1.8-7.8); Platelet Count 152 K/mm3 (142-424); Red Blood Count 4.51 M/mm3 (4.60-6.20); Red Cell Distribution Width 18.4 % (11.5-17.5); White Blood Count 6.3 K/mm3 (4.8-10.8)
[2019-01-18 16:20] LABS: Alanine Aminotransferase 17 U/L (12-78); Albumin Level 3.1 gm/dL (3.4-5.0); Albumin/Globulin Ratio 0.7 (1.1-1.8); Alkaline Phosphatase 98 U/L (46-116); Anion Gap 15.5 mEq/L (5-15); Aspartate Amino Transferase 18 U/L (15-37); Bilirubin,Total 0.6 mg/dL (0.2-1.0); Blood Urea Nitrogen 4 mg/dL (7-18); Calcium 8.2 mg/dL (8.5-10.1); Carbon Dioxide 25 mmol/L (21.0-32.0); Chloride 104 mmol/L (98-107); Creatinine,Serum 0.83 mg/dL (0.70-1.30); Estimated Glomerular Filt Rate 96 ml/min (>60); GFR (African American) 116 ML/MIN (>60); Globulin 4.2 gm/dl (1.3-3.2); Glucose 108 mg/dL (74-106); Potassium 3.5 mmoL/L (3.5-5.1); Sodium 141 mmol/L (136-145); Total Protein,Serum 7.3 gm/dL (6.4-8.2); Uric Acid 6.6 mg/dL (2.6-7.2)
[2019-01-18 16:36] LABS: Hemoglobin A1C 5.1 % (0.0-7.0)
[2019-01-19 08:13] LABS: Hep A Ab, IgM Negative (Negative); Hepatitis B Core Antibody IgM Negative (Negative); Hepatitis B Surface Antigen Negative (Negative)
[2019-01-21 13:44] LABS: Hepatitis C Antibody <0.1 s/co ratio (0.0-0.9)
[2019-01-24 07:06] LABS: QuantiFERON-TB Gold Plus Negative (Negative)
== END ==
PROVIDERS: PCP Internal Medicine Adolescent Medicine; Visit Provider Nurse Practitioner Family
DX: M06.9 Rheumatoid arthritis, unspecified (principal); E11.9 Type 2 diabetes mellitus without complications; Z79.84 Long term (current) use of oral hypoglycemic drugs; Z79.899 Other long term (current) drug therapy; Z01.89 Encounter for other specified special examinations
CPT/HCPCS: 36415; 80053; 80074; 83036; 84550; 85025; 86480

== ENCOUNTER 2019-10-01 16:15 | Emergency (ER) | payer MEDICARE, SELFPAY ==
[2019-10-01 16:28] VITALS: BP 121/80; PULSE 134; RESP 18; TEMP 36.8; O2SAT 99; BMI 30.8
--- NOTE | 2019-10-01 16:29 | ECG_ITS ---
APPROVED REPORT Exam: Resting ECG HR:92 bpm ECG Measurements Heart Rate 92 AXES NV 142 P -18 QRSd 88 QRS 40 QT 370 T 35 QTc 457 <Conclusion> Normal sinus rhythm Nonspecific ST and T wave abnormality Abnormal ECG Electronically signed by : Jeffrey Funk, 10/02/2019 08:56:25
--- NOTE | 2019-10-01 16:32 | PC.NURSE ---
fsbs 151
--- NOTE | 2019-10-01 16:32 | PC.NURSE ---
fsbs 151
[2019-10-01 16:43] VITALS: BP 117/87; PULSE 119; RESP 18; O2SAT 95
--- NOTE | 2019-10-01 16:45 | HMH.EDGENADL ---
ED Disposition Clinical Impression: Hypokalemia, Dehydration Nausea & vomiting Qualifiers: Vomiting type: unspecified Vomiting Intractability: non-intractable Qualified Code(s): R11.2 - Nausea with vomiting, unspecified Disposition: Home, Self-Care Condition on Discharge: Good Additional Instructions: Follow-up with your primary care provider within 2 to 3 days as well to have your potassium rechecked and for reevaluation of your nausea, vomiting and possible gallbladder dysfunction. Prescriptions: Potassium Chloride [Klor-con 20 mEq tablet] 20 meq PO DAILY #5 tab Prescription Printed Promethazine HCl [Phenergan 12.5mg Supp] 12.5 mg RC Q4-6H PRN #12 supp.rect PRN Reason: Nausea Prescription Printed Referrals: Leonidas Collazo MD [Staff Physician] - 10/02/19 - Critical Care Critical Care Time: No Attestation: On 10/01/19, the high probability of a clinically significant, sudden or life threatening deterioration of the following system(s) required my full and direct attention, intervention and personal management. The time I documented below is in addition to time spent performing reported procedures but includes the following listed in this critical care notation. Medical Decision Making - Medical Records Medical records reviewed: Yes: I reviewed the patient's medical records. - [place] Inquiry Pt receiving controlled substance: No Vital Signs: 10/01/19 16:28 10/01/19 16:43 10/01/19 17:30 Temperature 98.3 F Temperature Source Oral Pulse Rate [Left Radial] 134 H 119 H 90 Respiratory Rate 18 18 18 Blood Pressure [Left Arm] 121/80 117/87 154/95 H Blood Pressure Mean [Left Arm] 93 97 114 Blood Pressure Source [Left Arm] Automatic Cuff Automatic Cuff Blood Pressure Position [Left Arm] Sitting Sitting Sitting 02 Sat by Pulse Oximetry 99 95 96 Oxygen Delivery Method Room Air Room Air Room Air - Lab Data Lab Results 10/01/19 16:40: WBC 10.1, RBC 5.39, Hgb 17.6, Hct 50.4, MCV 93.4, MCH 32.7 H, MCHC 35.0, RDW 18.8 H, Plt Count 162, MPV 7.9, Neut % (Auto) 43.6, Lymph % (Auto) 36.3, [place] % (Auto) 16.8 H, Eos % (Auto) 2.4, Baso % (Auto) 1.0, Neut # (Auto) 4.4, Lymph # (Auto) 3.7, [place] # (Auto) 1.7 H, Eos # (Auto) 0.2, Baso # (Auto) 0.1 10/01/19 16:40: Sodium 131 L, Potassium 2.6 L*, Chloride 84 L, Carbon Dioxide 28, Anion Gap 21.6 H, BUN 22 H, Creatinine 1.00, Estimated Creat Clear 109, Estimated GFR 77, Est GFR ( Amer) 93, Glucose 170 H, Calcium 10.2, Total Bilirubin 2.9 H, AST 54, ALT 43, Alkaline Phosphatase 169 H, Troponin I < 0.01, Total Protein 9.6 H, Albumin 4.7, Globulin 4.9 H, Albumin/Globulin Ratio 1.0 L, Lipase 402 H, Acetone Level None detected 10/01/19 19:00: Urine Color Dk yellow, Urine Appearance Clear, Urine pH 6.5, Ur Specific [place] 1.010, Urine Protein Trace, Urine Glucose (UA) Negative, Urine Ketones Trace, Urine Blood Negative, Urine Nitrate Negative, Urine Bilirubin 2+ A, Urine Urobilinogen >=8.0, Ur Leukocyte Esterase Negative, Urine WBC 3-5, Ur Squamous Epith Cells Occasional, Amorphous Sediment Trace, Urine Mucus 2+ Result diagrams: 10/01/19 16:40 10/01/19 16:40 Orders (Tests/Meds): ED MEDICATIONS Generic Name Dose Route Start Last Admin Trade Name Freq PRN Reason Stop Dose Admin Sodium Chloride 1,000 mls @ 999 mls/hr 10/01/19 16:30 10/01/19 16:39 Sod Chlor 0.9% 1000ml Bag IV 10/01/19 17:30 999 mls/hr .Q1H1M DI Administration Sodium Chloride 1,000 mls @ 999 mls/hr 10/01/19 17:45 10/01/19 17:36 Sod Chlor 0.9% 1000ml Bag IV 10/01/19 18:45 999 mls/hr .Q1H1M DI Administration Discontinued Medications Generic Name Dose Route Start Last Admin Trade Name Freq PRN Reason Stop Dose Admin Ioversol 75 ml 10/01/19 18:36 10/01/19 18:38 Rad-Optiray 350 100ml Vial IV 10/01/19 18:37 75 ml ONCE ONE Administration Protocol Ondansetron HCl 4 mg 10/01/19 16:28 10/01/19 16:39 Zofran 4mg/2ml Vial IV 10/01/19 16:29 4 mg ONCE
[2019-10-01 16:48] LABS: Basophils # 0.1 K/mm3 (0-0.2); Eosinophils # 0.2 K/mm3 (0.0-0.4); Eosinophils % 2.4 % (0.1-12.0); Hematocrit 50.4 % (42.0-52.0); Hemoglobin 17.6 g/dL (14.1-18.0); Lymphocytes # 3.7 K/mm3 (0.7-4.5); Lymphocytes % 36.3 % (10-50); Mean Corpuscular Hemoglobin 32.7 pg (27.0-31.2); Mean Corpuscular Volume 93.4 fl (80-94); Mean Platelet Volume 7.9 fl (7.4-10.4); Monocytes # 1.7 K/mm3 (0.1-1.0); Monocytes % 16.8 % (1.7-9.3); Neutrophils # 4.4 K/mm3 (1.8-7.8); Neutrophils % 43.6 % (37.0-80.0); Platelet Count 162 K/mm3 (142-424); Red Blood Count 5.39 M/mm3 (4.60-6.20); Red Cell Distribution Width 18.8 % (11.5-17.5); White Blood Count 10.1 K/mm3 (4.8-10.8)
[2019-10-01 16:57] LABS: Acetone, Serum (Rapid) None Detected (None Detect)
[2019-10-01 16:58] LABS: Alanine Aminotransferase 43 U/L (12-78); Albumin Level 4.7 g/dl (3.5-5.0); Alkaline Phosphatase 169 U/L (38-126); Anion Gap 21.6 mEq/L (5-15); Aspartate Amino Transferase 54 U/L (17-59); Bilirubin,Total 2.9 mg/dl (0.2-1.3); Blood Urea Nitrogen 22 mg/dl (9-20); Calcium 10.2 mg/dl (8.4-10.2); Carbon Dioxide 28 mmol/L (22.0-30.0); Chloride 84 mmol/L (98-107); Creatinine Clearance Estimated 109 mL/min (50-200); Estimated Glomerular Filt Rate 77 ml/min (>60); GFR (African American) 93 ML/MIN (>60); Globulin 4.9 g/dL (1.3-3.2); Glucose 170 mg/dl (74-100); Lipase 402 U/L (23-300); Sodium 131 mmol/L (136-145); Total Protein,Serum 9.6 g/dl (6.3-8.2)
[2019-10-01 17:06] LABS: Potassium 2.6 mmoL/L (3.5-5.1)
--- NOTE | 2019-10-01 17:06 | PC.NURSE ---
lab called with critical potassium 2.6 Dr Goel aware
[2019-10-01 17:10] LABS: Troponin I < 0.01 ng/ml (0.00-0.034)
[2019-10-01 17:30] VITALS: BP 154/95; PULSE 90; RESP 18; O2SAT 96
--- NOTE | 2019-10-01 17:53 | CT_ITS ---
PROCEDURE: CT ABDOMEN PELVIS W CON CLINICAL INDICATION: vomiting, elevated bili and lipase COMPARISON: [facility] CT abdomen pelvis wo con from 04/29/2018 TECHNIQUE: IV Contrast: 75ML OPTIRAY 350 Oral Contrast none given Axial images obtained with sagittal and coronal reformats. All CT scans at the facility use one or more dose reduction, viz: automated exposure control, ma/kV adjustment per patient size (including targeted exams where dose is matched to indication, i.e. head), or iterative reconstruction technique. FINDINGS: Lower thorax: The lower lung young are clear. Again noted is a fat containing Bochdalek hernia posterior medially unchanged in size and appearance when compared to the previous study 04/29/2018. ABDOMEN: Liver: Again noted is mild diffuse fatty infiltration of the liver, there are no focal lesions. Gallbladder: Nondistended. No radio opaque stones. There is mild diffuse gallbladder wall thickening. Pancreas: No masses or peripancreatic fluid collections. Spleen: There are couple of calcified granuloma within the spleen which otherwise appears normal. Adrenals: unremarkable Kidneys/ureters: The kidneys are normal in size and show symmetrical function both appearing normal. ABDOMEN & PELVIS: Stomach bowel: Again noted is a distended fluid-filled distal esophagus with prominent concentric wall thickening with no significant tapering at the gastroesophageal junction. The appearance is likely due to chronic esophagitis. The stomach duodenal sweep and small bowel appear grossly normal. There is scattered stool and gas seen throughout the ascending and transverse colon. The descending and sigmoid colon are decompressed. The rectum is basically decompressed as well. Peritoneum: No abnormal fluid collections. No obvious inflammatory changes. No free air. Lymph nodes: No enlarged lymph nodes apparent. Vasculature: No evidence of abdominal aortic aneurysm. No retroperitoneal hemorrhage evident. Bones: No acute fracture there is mild degenerate disc disease at the L 5 S1 level. PELVIS: Reproductive: unremarkable Bladder: The urinary bladder is partially decompressed, the prostate is normal in size. Appendix: The appendix is normal in caliber and retrocecal in location with no inflammatory changes noted. IMPRESSION: Diffusely distended fluid-filled distal esophagus with prominent concentric wall thickening findings basically unchanged from the previous study and most suggestive of chronic esophagitis. Stable mild diffuse hepatic steatosis. Mild diffuse gallbladder wall thickening raising possibility of some degree of chronic cholecystitis and suggest clinical correlation. Dictated by: Dr. Chalo Ge MD 10/01/2019 19:[address] Chalo Ge MD in [place] 10/01/2019 19:01
[2019-10-01 19:05] LABS: Microscopic, Urine URINE MICROSCOPIC (MICROSCOPIC)
[2019-10-01 19:06] LABS: Appearance,Urine CLEAR (Clear); Blood, Urine Negative (Negative); Color,Urine DK YELLOW (Yellow); Glucose,Urine (UA) Negative (Negative); Ketones,Urine TRACE (Negative); Leukocyte Esterase,Urine Negative (Negative); Nitrate,Urine Negative (Negative); PH,Urine 6.5 (5.0-8.5); Protein,Urine TRACE (Negative); Urobilinogen,Urine >=8.0 EU/dl (0.2)
[2019-10-01 19:17] LABS: Bilirubin,Urine 2+ (Negative)
[2019-10-01 19:18] LABS: Squamous Epithelial Cell,Urine Occasional #/hpf (0-5)
[2019-10-01 19:19] LABS: Amorphous Sediment,Urine Trace /lpf; Mucus,Urine 2+ /lpf
--- NOTE | 2019-10-01 19:19 | PC.NURSE ---
report given to [email or web address]
[2019-10-01 19:36] VITALS: BP 126/87; PULSE 96; RESP 18; TEMP 36.7; O2SAT 97
[2019-10-01 19:37] VITALS: BP 126/97; PULSE 95; RESP 17; TEMP 36.7; O2SAT 98
== END 2019-10-01 19:43 | disposition home or self-care (01) ==
PROVIDERS: Emergency Provider Emergency Medicine
DX: E86.0 Dehydration (principal); E87.6 Hypokalemia; E11.65 Type 2 diabetes mellitus with hyperglycemia; K21.9 Gastro-esophageal reflux disease without esophagitis; J44.9 Chronic obstructive pulmonary disease, unspecified; F33.1 Major depressive disorder, recurrent, moderate; E78.5 Hyperlipidemia, unspecified; I10 Essential (primary) hypertension; K20.9 Esophagitis, unspecified; Z79.899 Other long term (current) drug therapy; Z79.84 Long term (current) use of oral hypoglycemic drugs
CPT/HCPCS: 74177; 80053; 81001; 82009; 83690; 84484; 85025; 93005; 96365; 96375; 99283; J2405; Q9967

== ENCOUNTER 2019-10-04 08:30 | Observation (INO) | payer MEDICARE, SELFPAY ==
[2019-10-04 07:31] LABS: Basophils % 0.3 % (0.1-2.0); Eosinophils # 0.3 K/mm3 (0.0-0.4); Eosinophils % 2.4 % (0.1-12.0); Hematocrit 45.7 % (42.0-52.0); Hemoglobin 15.9 g/dL (14.1-18.0); Lymphocytes # 2.8 K/mm3 (0.7-4.5); Lymphocytes % 26.4 % (10-50); Mean Corpuscular HGB Conc 34.8 g/dL (31.8-35.4); Mean Corpuscular Hemoglobin 33.2 pg (27.0-31.2); Mean Corpuscular Volume 95.4 fl (80-94); Mean Platelet Volume 7.5 fl (7.4-10.4); Monocytes # 0.7 K/mm3 (0.1-1.0); Monocytes % 6.6 % (1.7-9.3); Neutrophils # 6.8 K/mm3 (1.8-7.8); Neutrophils % 64.3 % (37.0-80.0); Platelet Count 246 K/mm3 (142-424); Red Blood Count 4.79 M/mm3 (4.60-6.20); Red Cell Distribution Width 18.8 % (11.5-17.5); White Blood Count 10.6 K/mm3 (4.8-10.8)
[2019-10-04 07:35] LABS: Chloride 94 mmol/L (98-107)
[2019-10-04 07:36] LABS: Sodium 134 mmol/L (136-145)
[2019-10-04 07:38] LABS: Alanine Aminotransferase 26 U/L (12-78); Alkaline Phosphatase 133 U/L (38-126); Aspartate Amino Transferase 33 U/L (17-59); Bilirubin,Total 2.2 mg/dl (0.2-1.3); Blood Urea Nitrogen 16 mg/dl (9-20); Estimated Glomerular Filt Rate 100 ml/min (>60); GFR (African American) 121 ML/MIN (>60)
[2019-10-04 07:39] LABS: Albumin Level 3.9 g/dl (3.5-5.0); Albumin/Globulin Ratio 0.8 (1.1-1.8); Carbon Dioxide 25 mmol/L (22.0-30.0); Globulin 4.6 g/dL (1.3-3.2); Glucose 149 mg/dl (74-100); Magnesium 1.5 mg/dl (1.6-2.3); Total Protein,Serum 8.5 g/dl (6.3-8.2)
--- NOTE | 2019-10-04 07:42 | US_ITS ---
PROCEDURE: US ABDOMEN LIMITED CLINICAL INDICATION: CHOLECYSTITIS Nausea vomiting right upper quadrant pain weight loss COMPARISON: CT ABDOMEN PELVIS W CON from 10/01/2019 FINDINGS: PANCREAS: Unremarkable. No obvious mass or abnormal fluid collection. No ductal dilatation LIVER: There is diffuse increased echogenicity of the liver consistent with fatty liver. RIGHT KIDNEY: Unremarkable. Normal size and echogenicity. No hydronephrosis GALLBLADDER: There is mild thickening of the gallbladder wall. No shadowing stones are apparent.. The gallbladder is somewhat contracted. There may be some sludge in the gallbladder. Common bile duct is normal at 4 mm IMPRESSION: Contracted gallbladder with mildly thickened wall with suggestion of some gallbladder sludge. Fatty liver Dictated by: Eulogio Rodriguez MD 10/04/2019 10:12 Electronically signed by Eulogio Rodriguez MD in [place] 10/04/2019 10:12
[2019-10-04 07:45] LABS: Anion Gap 17.6 mEq/L (5-15); Potassium 2.6 mmoL/L (3.5-5.1)
[2019-10-04 07:46] LABS: Calcium 9.1 mg/dl (8.4-10.2)
[2019-10-04 08:52] VITALS: BP 134/78; PULSE 96; RESP 18; TEMP 36.5; O2SAT 97; BMI 27.1
[2019-10-04 09:30] VITALS: PULSE 96; RESP 18; O2SAT 97
--- NOTE | 2019-10-04 10:06 | ECG_ITS ---
APPROVED REPORT Exam: Resting ECG HR:90 bpm ECG Measurements Heart Rate 90 AXES [place] 160 P 55 QRSd 88 QRS 58 QT 372 T 29 QTc 455 <Conclusion> Normal sinus rhythm T wave abnormality, consider inferior ischemia T wave abnormality, consider anterolateral ischemia Abnormal ECG Electronically signed by : Too Lau, 10/05/2019 16:57:32
--- NOTE | 2019-10-04 10:44 | P.CONPHA_ITS ---
[facility] Pharmacy VTE Monitoring - Patient Demographics Admission date: 10/04/19 Report Date: 10/04/19 Time: 10:44 Allergies/Adverse Reactions: Patient Allergies NSAIDS (Non-Steroidal Anti-Inflamma Adverse Reaction (Mild, Verified 10/04/19 09:42) Height: 1.73 m Weight: 80.853 kg - VTE Risk Labs: VTE Related Lab Results Hgb 15.9 g/dL (14.1-18.0) 10/04/19 07:15 Hct 45.7 % (42.0-52.0) 10/04/19 07:15 Plt Count 246 K/mm3 (142-424) D 10/04/19 07:15 BUN 16 mg/dl (9-20) D 10/04/19 07:15 Creatinine 0.80 mg/dl (0.66-1.25) 10/04/19 07:15 Was VTE Risk Assessment Performed: Yes VTE Score: 3 VTE Risk Level: Low Risk Clinical Trial Participant: No - Prophylaxis VTE Prophylaxis Ordered?: Yes Types of VTE Prophylaxis: TEDS Knee High Location of Applied Device: Bilateral Lower Extremeties
--- NOTE | 2019-10-04 11:31 | HMH.PHAINT ---
home medication reconciliation completed using list from Dr Lau's office and pt interview
[2019-10-04 12:18] VITALS: BP 160/103; PULSE 103; RESP 18; TEMP 36.7; O2SAT 98
--- NOTE | 2019-10-04 13:47 | PC.NURSE ---
called office and spoke with Ash Mckeon about consult for Dr. Conde
[2019-10-04 14:45] LABS: INR 1.13 (0.9-1.1); Prothrombin Time 11.5 seconds (9.4-11.8)
--- NOTE | 2019-10-04 15:13 | HMH.GSCON ---
*Admission Date: 10/04/19 *Reason for consult:: Gallbladder disease *History of present illness: This is a 59-year-old gentleman seen in consultation for Dr. Lau for evaluation regarding possible gallbladder disease. Over the past few months she has had increasing nausea and emesis. He states that things just seem to get stuck . He does have a history of esophageal stricture requiring dilatation (Dr. Lulu Collazo). More recently his evaluation has included a CT scan which was followed up by an ultrasound of the right upper quadrant confirming some wall thickening and a somewhat contracted gallbladder. His bilirubin earlier today was 2.2 (down from 2.9). Review of Systems - Constitutional Reports anorexia - Eyes Denies change in vision - ENT Denies change in voice - *Cardiovascular Denies chest pain - *Respiratory Reports cough - *Gastrointestinal Denies abdominal pain - *Genitourinary Denies painful urination - *Musculoskeletal Denies tingling - Integumentary/Breasts Denies changing lesions - *Neurologic Denies abnormal movements - Psychiatric Denies anxiety - Endocrine Denies flushing - Hematologic/Lymphatic Denies easy bleeding - Allergic/Immunologic Denies hives [facility] History Medical History: Reports:: Asthma, Chronic Obstructive Pulmonary Disease (COPD), Depression, Diabetes Mellitus Type 2, Gastroesophageal Reflux Disease(GERD), Hyperlipidemia, Hypertension, Internal Pacemaker Denies:: Cancer, Diabetes Mellitus Type 1, Lung Disease, MRSA, Seizures *Have you ever received a pneumonia vaccine?: Yes *Have you received a flu vaccine this season?: Yes Other Medical History: Reports: Arthritis, Liver Disease, Other. Denies: Blood Transfusion Reaction Other Surgeries: Yes: No Previous Surgery, Pacemaker, Other (RT ankle sx, Vasectomy, Lt wrist sx) Amputation: No Fractures: Yes - *Social History Educational Level: Completed High School Smoking Status: Never smoker Tobacco Type: smokeless tobacco # Packs/Day (cigarettes): 0 Alcohol Intake: former Alcohol Intake Frequency:: 3 or more drinks per day Substance Use Type: denies use *Occupational Status:: disabled Housing: house Household Members: spouse *Travel in the last 8 weeks: None - Psychiatric History Pschychiatric History:: Reports:: Depression Family Hx:: Alcoholism Meds Home Medications Medication Instructions Recorded Confirmed Type Atorvastatin Calcium [Lipitor 40mg 40 mg PO HS 09/07/18 06/10/20 History Tablet] Buspirone HCl [Buspar 10mg 10 mg PO TID 12/31/17 10/04/19 History tablet] Certolizumab Pegol [Cimzia] 400 mg SQ MONTHLY 12/31/17 10/04/19 History Citalopram Hydrobromide [Celexa 40 mg PO DAILY 12/31/17 10/04/19 History 40mg Tablet] Hydroxychloroquine Sulfate 200 mg PO BID 12/31/17 10/04/19 History [Plaquenil 200mg tablet] Levothyroxine Sodium [Synthroid 50 mcg PO DAILY 12/31/17 10/04/19 History 50mcg (0.05mg) tab] Metformin HCl [Glucophage 500mg 500 mg PO DAILY 12/31/17 10/04/19 History Tablet] Omeprazole [Omeprazole 20mg 20 mg PO DAILY 12/31/17 10/04/19 History Capsule] Pregabalin [Lyrica 150mg Cap] 150 mg PO BID 12/31/17 10/04/19 History Trazodone HCl 200 mg PO HS 12/31/17 10/04/19 History Hydrocodone/Acetaminophen [Lortab 1 tab PO BID 04/29/18 10/04/19 History 7.5/325mg tablet] ondansetron HCl 4 mg tablet 4 mg PO Q6H PRN #30 tab 11/07/18 10/04/19 Rx Promethazine HCl [Phenergan 12.5mg 12.5 mg RC Q4-6H PRN #12 supp.rect 10/01/19 10/04/19 Rx Supp] Albuterol Sulfate [Albuterol 2 puff IH QIDP PRN 10/04/19 10/04/19 History Sulfate Hfa] Budesonide/Formoterol Fumarate 2 puffs IH BID 10/04/19 10/04/19 History [Symbicort 160-4.5 Mcg Inhaler] Cholecalciferol (Vitamin D3) 1,000 unit PO DAILY 10/04/19 10/04/19 History [Vitamin D3 1,000 Unit Cap] Potassium Chloride [Klor-con 20 20 meq PO DAILY 10/04/19 10/04/19 History mEq tablet] lisinopriL [Lisinopri
[2019-10-04 15:55] VITALS: BMI 27.0
--- NOTE | 2019-10-04 16:10 | HMH.HP ---
*Admission Date: 10/04/19 *Chief complaint: N/V/hypokalemia *History of present illness: White male with multiple medical problems including chronic/relapsing alcoholism, history of esophagitis with variceal bleeding status post variceal banding at [facility] many years ago, along with acute alcoholic hepatitis that is improved somewhat with reduction in his drinking. He also has chronic rheumatoid arthritis, on immunosuppressive therapy and is maintained on low-dose chronic opiate therapy for his joint pain given his contraindication to NSAIDs. He has been ill over the past 3-4 days of nausea, severe vomiting and a feeling of food sticking and reflux. Was in the emergency department yesterday, found to be hypokalemic and CT scan showed evidence of cholecystitis. Came to my office on 10/03/2019, and was mildly dehydrated but normal vital signs. I ordered labs this morning as well as a gallbladder ultrasound which revealed ongoing hypokalemia, with poor improvement with replacement with electrolyte containing oral beverages, and continued cholecystitis on gallbladder ultrasound. In the hospital for further evaluation by surgery and GI, also for electrolyte replacement and IV fluid administration. [facility] History I have reviewed the patient's past medical history: Yes Medical History: Reports:: Asthma, Chronic Obstructive Pulmonary Disease (COPD), Depression, Diabetes Mellitus Type 2, Gastroesophageal Reflux Disease(GERD), Hyperlipidemia, Hypertension, Internal Pacemaker Denies:: Cancer, Diabetes Mellitus Type 1, Lung Disease, MRSA, Seizures *Have you ever received a pneumonia vaccine?: Yes *Have you received a flu vaccine this season?: Yes Other Medical History: Reports: Arthritis, Liver Disease, Other. Denies: Blood Transfusion Reaction Other Surgeries: Yes: No Previous Surgery, Pacemaker, Other (RT ankle sx, Vasectomy, Lt wrist sx) Amputation: No Fractures: Yes - *Social History Educational Level: Completed High School Smoking Status: Never smoker Tobacco Type: smokeless tobacco # Packs/Day (cigarettes): 0 Alcohol Intake: former Alcohol Intake Frequency:: 3 or more drinks per day Substance Use Type: denies use *Occupational Status:: disabled Housing: house Household Members: spouse *Travel in the last 8 weeks: None - Psychiatric History Pschychiatric History:: Reports:: Depression Family Hx:: Alcoholism Review of Systems - Review of Systems Review of systems:: pertinent systems reviewed and negative unless documented below - *Neurologic Denies abnormal movements, Denies tingling Meds Home Medications Medication Instructions Recorded Confirmed Type Atorvastatin Calcium [Lipitor 40mg 40 mg PO HS 12/31/17 10/04/19 History Tablet] Buspirone HCl [Buspar 10mg 10 mg PO TID 12/31/17 10/04/19 History tablet] Certolizumab Pegol [Cimzia] 400 mg SQ MONTHLY 12/31/17 10/04/19 History Citalopram Hydrobromide [Celexa 40 mg PO DAILY 12/31/17 10/04/19 History 40mg Tablet] Hydroxychloroquine Sulfate 200 mg PO BID 12/31/17 10/04/19 History [Plaquenil 200mg tablet] Levothyroxine Sodium [Synthroid 50 mcg PO DAILY 12/31/17 10/04/19 History 50mcg (0.05mg) tab] Metformin HCl [Glucophage 500mg 500 mg PO DAILY 12/31/17 10/04/19 History Tablet] Omeprazole [Omeprazole 20mg 20 mg PO DAILY 12/31/17 10/04/19 History Capsule] Pregabalin [Lyrica 150mg Cap] 150 mg PO BID 12/31/17 10/04/19 History Trazodone HCl 200 mg PO HS 12/31/17 10/04/19 History Hydrocodone/Acetaminophen [Lortab 1 tab PO BID 04/29/18 10/04/19 History 7.5/325mg tablet] ondansetron HCl 4 mg tablet 4 mg PO Q6H PRN #30 tab 11/07/18 10/04/19 Rx Promethazine HCl [Phenergan 12.5mg 12.5 mg RC Q4-6H PRN #12 supp.rect 10/01/19 10/04/19 Rx Supp] Albuterol Sulfate [Albuterol 2 puff IH QIDP PRN 10/04/19 10/04/19 History Sulfate Hfa] Budesonide/Formoterol Fumarate 2 puffs IH BID 10/04/19 10/04/19 History [Symbicort 160-4.5 Mcg Inhaler
[2019-10-04 16:15] VITALS: BP 148/74; PULSE 94; RESP 20; TEMP 37; O2SAT 95
--- NOTE | 2019-10-04 17:29 | PC.NURSE ---
Pt was a direct admit this shift. Pleasant and cooperative. A&O X4. No complaints of pain or SOA. Pt has complained of nausea and has had a few episodes of vomiting. Emesis is noted to be clear, frothy, and thick. Pt has received Phenergan and Zofran per MAR with favorable results. Pt ambulates independently to and from the bathroom. SUSAN hose in place to BLE. Lungs CTA. Abdomen soft and non-tender. 20 G peripheral IV placed in the RT AC and infusing NS w/ 20 K+ @ 200 ML/HR. Pt was seen in consult by general surgery today and is scheduled for a laparoscopic (possible open) cholecystectomy tomorrow @ 11:15 AM. Consent has been obtained and placed on the chart. NPO after midnight order is in place. Vital signs have been stable although, 1 episode of hypertension is noted and believed to be due to the fact that the pt had just finished vomiting. Call light within reach. Will continue to monitor.
--- NOTE | 2019-10-04 19:14 | PC.NURSE ---
report given to juana
[2019-10-04 20:00] VITALS: BP 137/77; PULSE 90; RESP 22; TEMP 36.7; O2SAT 93
--- NOTE | 2019-10-04 22:56 | PC.NURSE ---
pt. c/o nausea; relieved with phenergan per mar. Later pt. had spit up some of his hs medications; pt. reports that he has been unsuccessful for weeks in taking his medications.
[2019-10-05] VITALS (27 sets, daily range): BP systolic 116–155; BP diastolic 61–90; PULSE 71–105; RESP 12–24; TEMP 36.4–43; O2SAT 91–98; BMI 27.9
--- NOTE | 2019-10-05 06:43 | P.PN_ITS ---
Subjective Narrative: He states that he feels about the same . He continues to have nausea. No significant abdominal pain. Exam Vital signs and Labs for Last 24 Hours: Temp Pulse Resp BP Pulse Ox 99.0 F 88 20 121/66 96 10/05/19 04:00 10/05/19 04:00 10/05/19 04:00 10/05/19 04:00 10/05/19 04:00 Laboratory Results - last 24 hr 10/04/19 07:15: Sodium 134 L, Potassium 2.6 L*, Chloride 94 L, Carbon Dioxide 25, Anion Gap 17.6 H, BUN 16 D, Creatinine 0.80, Estimated GFR 100, Est GFR ( Amer) 121 D, Glucose 149 H, Calcium 9.1 D, Magnesium 1.5 L, Total Bilirubin 2.2 H, AST 33 D, ALT 26 D, Alkaline Phosphatase 133 H, Total Protein 8.5 H, Albumin 3.9, Globulin 4.6 H, Albumin/Globulin Ratio 0.8 L 10/04/19 07:15: WBC 10.6, RBC 4.79, Hgb 15.9, Hct 45.7, MCV 95.4 H, MCH 33.2 H, MCHC 34.8, RDW 18.8 H, Plt Count 246 D, MPV 7.5, Neut % (Auto) 64.3, Lymph % (Auto) 26.4, [place] % (Auto) 6.6, Eos % (Auto) 2.4, Baso % (Auto) 0.3, Neut # (Auto) 6.8, Lymph # (Auto) 2.8, [place] # (Auto) 0.7, Eos # (Auto) 0.3, Baso # (Auto) 0.0 10/04/19 14:30: PT 11.5, INR 1.13 H I & O for Last 24 hours: Intake & Output 10/02/19 10/03/19 10/04/19 10/05/19 11:59 11:59 11:59 11:59 Intake Total 3691 / 3691 Balance 3691 / 3691 Weight 178 lb 4 oz 184 lb 4 oz - Constitutional no acute distress - *Routine Respiratory Exam Absent: respiratory distress - *Routine Cardiovascular Exam Present: RRR - *Routine Abdominal Exam Present: soft Progress Note: A&P (1) Thickening of wall of gallbladder Status: Acute Assessment and plan: He is scheduled for cholecystectomy later today. Current Visit: Yes (2) Hyperbilirubinemia Status: Acute Assessment and plan: Follow-up a.m. labs Current Visit: Yes (3) History of esophageal dilatation Status: Acute Assessment and plan: Gastroenterology consultation pending Current Visit: Yes (4) Esophagitis Status: Acute Current Visit: No (5) Gastroenteritis Problem details: Resolving, unclear etiology however no further symptoms. Tolerating p.o. intake. Status: Acute Current Visit: No (6) Hypokalemia Problem details: Replace with oral. Initiate multivitamin on discharge Status: Acute Assessment and plan: Follow-up a.m. labs Current Visit: No (7) Hypomagnesemia Problem details: Placed via IV. Status: Acute Current Visit: No
[2019-10-05 07:25] LABS: Chloride 103 mmol/L (98-107); Potassium 3.3 mmoL/L (3.5-5.1); Sodium 135 mmol/L (136-145)
[2019-10-05 07:27] LABS: Alanine Aminotransferase 16 U/L (12-78); Alkaline Phosphatase 90 U/L (38-126); Amylase 149 U/L (30-110); Anion Gap 7.3 mEq/L (5-15); Aspartate Amino Transferase 27 U/L (17-59); Bilirubin,Total 1.6 mg/dl (0.2-1.3); Blood Urea Nitrogen 10 mg/dl (9-20); Carbon Dioxide 28 mmol/L (22.0-30.0); Creatinine Clearance Estimated 120 mL/min (50-200); Estimated Glomerular Filt Rate 100 ml/min (>60); GFR (African American) 121 ML/MIN (>60); Glucose 116 mg/dl (74-100)
[2019-10-05 07:28] LABS: Albumin Level 2.8 g/dl (3.5-5.0); Albumin/Globulin Ratio 0.8 (1.1-1.8); Globulin 3.6 g/dL (1.3-3.2); Magnesium 1.7 mg/dl (1.6-2.3); Total Protein,Serum 6.4 g/dl (6.3-8.2)
[2019-10-05 07:34] LABS: Hematocrit 38.3 % (42.0-52.0); Mean Corpuscular HGB Conc 33.4 g/dL (31.8-35.4); Mean Corpuscular Hemoglobin 32.7 pg (27.0-31.2); Mean Corpuscular Volume 97.7 fl (80-94); Platelet Count 187 K/mm3 (142-424); Red Blood Count 3.92 M/mm3 (4.60-6.20); Red Cell Distribution Width 18.1 % (11.5-17.5); White Blood Count 8.9 K/mm3 (4.8-10.8)
[2019-10-05 07:35] LABS: Lymphocytes % 15.8 % (10-50); Mean Platelet Volume 6.9 fl (7.4-10.4); Monocytes % 7.3 % (1.7-9.3); Neutrophils % 74.7 % (37.0-80.0)
[2019-10-05 07:36] LABS: Basophils # 0.1 K/mm3 (0-0.2); Basophils % 0.7 % (0.1-2.0); Eosinophils # 0.1 K/mm3 (0.0-0.4); Eosinophils % 1.6 % (0.1-12.0); Lymphocytes # 1.4 K/mm3 (0.7-4.5); Monocytes # 0.7 K/mm3 (0.1-1.0); Neutrophils # 6.7 K/mm3 (1.8-7.8)
[2019-10-05 07:41] LABS: Calcium 7.9 mg/dl (8.4-10.2)
[2019-10-05 07:45] LABS: Hemoglobin 12.8 g/dL (14.1-18.0)
[2019-10-05 07:48] LABS: Coronavirus 19 IgG Antibody Negative (Negative); Coronavirus 19 IgM Antibody Negative (Negative)
[2019-10-05 07:54] LABS: Lipase 276 U/L (23-300)
--- NOTE | 2019-10-05 07:59 | HMH.ACPN2 ---
Internal Medicine - PN: Subj *Date: 10/05/19 *Time: 13:57 Interval history: Mr. Vazquez was n.p.o. this morning for scheduled cholecystectomy. Continues to complain of some abdominal discomfort. Denies significant nausea or chest pain. No shortness of breath. Hemodynamically stable overnight. Afebrile. Exam Vital signs and Labs for Last 24 Hours: Temp Pulse Resp BP Pulse Ox 98.1 F 91 H 18 118/61 95 10/05/19 07:46 10/05/19 07:46 10/05/19 07:46 10/05/19 07:46 10/05/19 07:46 Laboratory Results - last 24 hr 10/04/19 14:30: PT 11.5, INR 1.13 H 10/05/19 06:37: WBC 8.9, RBC 3.92 L, Hgb 12.8 L D, Hct 38.3 L, MCV 97.7 H, MCH 32.7 H, MCHC 33.4, RDW 18.1 H, Plt Count 187, MPV 6.9 L, Neut % (Auto) 74.7, Lymph % (Auto) 15.8, [place] % (Auto) 7.3, Eos % (Auto) 1.6, Baso % (Auto) 0.7, Neut # (Auto) 6.7, Lymph # (Auto) 1.4, [place] # (Auto) 0.7, Eos # (Auto) 0.1, Baso # (Auto) 0.1 10/05/19 06:37: Sodium 135 L, Potassium 3.3 L D, Chloride 103, Carbon Dioxide 28, Anion Gap 7.3, BUN 10 D, Creatinine 0.80, Estimated Creat Clear 120, Estimated GFR 100, Est GFR ( Amer) 121, Glucose 116 H D, Calcium 7.9 L D, Magnesium 1.7 D, Total Bilirubin 1.6 H, AST 27, ALT 16 D, Alkaline Phosphatase 90, Total Protein 6.4, Albumin 2.8 L D, Globulin 3.6 H, Albumin/Globulin Ratio 0.8 L, Amylase 149 H 10/05/19 06:37: Lipase 276 10/05/19 06:37: SARS-CoV-2 IgG Ab (Rapid) Negative, SARS-CoV-2 IgM Ab (Rapid) Negative I & O for Last 24 hours: Intake & Output 10/02/19 10/03/19 10/04/19 10/05/19 23:59 23:59 23:59 23:59 Intake Total 1560 / 1560 2130 Balance 156 / 1560 2130 Weight 81 kg 83.574 kg Narrative: The patient is alert, pleasant. Appears chronically. No acute distress on exam Oropharynx moist, poor dentition. Lungs with smokers rhonchi, but otherwise clear. Abdomen is minimally tender in right upper quadrant, no rebound or guarding, no CVA tenderness. Heart rate regular, no murmurs. Extremities with swollen joints consistent with his rheumatoid arthritis but no evidence of active infectious synovitis, trace ankle edema. No unusual skin rashes Neurologic exam intact Assessment and Plan (1) Thickening of wall of gallbladder Current visit: Yes Status: Acute Category: Medical Code(s): K82.8 - Other specified diseases of gallbladder (2) Cholecystitis Current visit: Yes Status: Acute Category: Medical Code(s): K81.9 - Cholecystitis, unspecified Planning for surgery today. (3) Hyperbilirubinemia Current visit: Yes Status: Acute Category: Medical Code(s): E80.6 - Other disorders of bilirubin metabolism (4) History of esophageal dilatation Current visit: Yes Status: Acute Category: Medical Code(s): Z98.890 - Other specified postprocedural states (5) Esophagitis Current visit: No Status: Acute Category: Medical Code(s): K20.9 - Esophagitis, unspecified (6) Gastroenteritis Problem details: Resolving, unclear etiology however no further symptoms. Tolerating p.o. intake. Current visit: No Status: Acute Category: Medical Code(s): K52.9 - Noninfective gastroenteritis and colitis, unspecified (7) Hypokalemia Problem details: Replace with oral. Initiate multivitamin on discharge Current visit: No Status: Acute Category: Medical Code(s): E87.6 - Hypokalemia (8) Hypomagnesemia Problem details: Placed via IV. Current visit: No Status: Acute Category: Medical Code(s): E83.42 - Hypomagnesemia - Assessment and plan all Dx Assessment and Plan for all problems:: N.p.o. this morning for planned surgery. Electrolytes reviewed, normalizing. Continue replacement as needed. Additionally, Surgery consultation to evaluate gallbladder, will need GI involvement because of his dysphagia and need for endoscopy in the next couple of days. Planning for cholecystectomy today with GI consult tomorrow. Resume hydroxychloroquine for RA. Continue
--- NOTE | 2019-10-05 11:07 | PC.NURSE ---
PT OFF FLOOR AT THIS TIME FOR SURGERY.
--- NOTE | 2019-10-05 12:13 | P.PN_ITS ---
[facility] Anesthesia Checklist - Structural Data Admitted From: Inpatient Planned Operative Procedure/s: tor alexander Consent for Planned Operative Procedure(s) Verified: Yes - Additional verifications Anesthesia Reactions: No Hx Blood Transfusions: Yes Blood Transfusion Reaction: No - Airway Assessment C-Spine Mobility Assessed: Yes TMJ Mobility Assessed: Yes Dentition: Poor Dentition - Neurological Assessment Level of Consciousness: Awake, Alert, Appropriate - Anesthesia Plan Anesthesia Risk discussed: Yes Anesthesia Plan: Verified ASA Class: III Anesthesia Type: General [facility] History I have reviewed the patient's past medical history: Yes Medical History: Reports:: Asthma, Chronic Obstructive Pulmonary Disease (COPD), Depression, Diabetes Mellitus Type 2, Gastroesophageal Reflux Disease(GERD), Hyperlipidemia, Hypertension, Internal Pacemaker Denies:: Cancer, Diabetes Mellitus Type 1, Lung Disease, MRSA, Seizures *Have you ever received a pneumonia vaccine?: Yes *Have you received a flu vaccine this season?: Yes Other Medical History: Reports: Arthritis, Liver Disease, Other. Denies: Blood Transfusion Reaction Anesthesia experience/problems:: none Other Surgeries: Yes: No Previous Surgery, Pacemaker, Other (RT ankle sx, Vasectomy, Lt wrist sx) Amputation: No Fractures: Yes - *Social History Educational Level: Completed High School Smoking Status: Never smoker Tobacco Type: smokeless tobacco # Packs/Day (cigarettes): 0 Alcohol Intake: former Alcohol Intake Frequency:: 3 or more drinks per day Substance Use Type: denies use *Occupational Status:: disabled Housing: house Household Members: spouse *Travel in the last 8 weeks: None - Psychiatric History Pschychiatric History:: Reports:: Depression Family Hx:: Alcoholism
--- NOTE | 2019-10-05 13:29 | HMH.OPNOTE ---
Date of procedure: 10/05/19 Pre-op Diagnosis:: Gallbladder wall thickening Abnormal liver function studies Umbilical hernia Post-op Diagnosis:: Same as preoperative diagnoses with the addition of the following: Severe chronic cholecystitis Procedure performed:: Laparoscopic cholecystectomy (incidental umbilical hernia repair as part of trocar site closure) Surgeon:: Haja Conde MD Impregnating Machine Operator(s):: Lui SWEATBAND SEPARATOR:: Dario Villagomez Anesthesia: GETA Estimated blood loss (mL): 15 Operative findings:: Distention of gallbladder Gallbladder wall thickening Severe pericholecystic fat stranding with densely adhered omentum, colon, small bowel, and stomach Dome down approach utilized Endoloops (x2) used to secure the infundibulum Operative note:: After informed consent was obtained, the patient was taken to the operating room and placed in the supine position. General anesthesia was induced and the abdomen was prepped and draped in a sterile fashion. A small stab incision was made in the left upper quadrant. A Veress needle was placed in position. The abdomen was insufflated. A curvilinear incision was made just below the umbilicus as the tissue was elevated to expose the hernia. The 11 mm trocar was placed through the hernia. Under direct visualization, a 5 mm trocar was placed in the subxiphoid position and 2 additional 5 mm trocars were placed in the right upper quadrant. Severe pericholecystic fat stranding noted. The gallbladder, omentum, and surrounding bowel were densely adhered in the right upper quadrant. Very careful dissection was utilized to free the gallbladder as it was elevated up and over the liver margin. The tissue around the cystic duct was carefully dissected. The entire infundibular region was extremely thickened and dissection was very difficult. The cystic artery was freed from surrounding tissue. 2 clips were placed proximally and the artery was transected with harmonic liz. Secondary to severe inflammatory changes and chronic thickening of tissue the decision was made to proceed with a dome down approach . Harmonic liz were utilized to dissect the gallbladder away from the liver margin. Endoloops (x2) were then placed at the infundibulum. The infundibulum was then transected distal to the Endoloops utilizing harmonic liz. The gallbladder was placed in a retrieval bag and removed through the umbilical trocar site. The right upper quadrant was thoroughly irrigated. No active bleeding or bile leak was noted. Fascia at the umbilical trocar site (site of umbilical hernia) was reapproximated utilizing 0 Ethibond. The remaining trocars were removed. All wounds were irrigated and skin was closed with 4-0 Monocryl in a subcuticular fashion. Steri-Strips were applied. The patient's anesthetic agents were reversed and extubation was completed prior to transfer to recovery in stable condition. Condition: stable Disposition: PACU Specimens:: Gallbladder Complications:: No immediate
--- NOTE | 2019-10-05 13:51 | P.PN_ITS ---
[facility] Anesthesia Record Part I Intake, IV Amount: 1,500 Estimated blood loss (mL): 0 Urine output (mL): 0 Blood Pressure: 134/76 SaO2: 95 Pulse Rate: 102 Respiratory Rate: 12 Temperature: 97.6 F Patient is:: Awake, Stable Stable to PACU at:: 13:45
[2019-10-06] VITALS (20 sets, daily range): BP systolic 104–187; BP diastolic 57–98; PULSE 71–84; RESP 16–19; TEMP 36.4–37.1; O2SAT 93–99; BMI 29.2
--- NOTE | 2019-10-06 02:13 | PC.NURSE ---
He is A&Ox4. He is NPO at this time. Received PRN pain medication for abdominal pain. 5 DSGs are intact with scant drainage on 2 of the sites. No new drainage. He continues on RA.
[2019-10-06 06:34] LABS: Basophils % 0.1 % (0.1-2.0); Chloride 108 mmol/L (98-107); Eosinophils % 0.2 % (0.1-12.0); Hematocrit 40.1 % (42.0-52.0); Hemoglobin 13.3 g/dL (14.1-18.0); Lymphocytes # 1.2 K/mm3 (0.7-4.5); Lymphocytes % 7.6 % (10-50); Mean Corpuscular HGB Conc 33.2 g/dL (31.8-35.4); Mean Corpuscular Hemoglobin 32.9 pg (27.0-31.2); Mean Corpuscular Volume 99.2 fl (80-94); Mean Platelet Volume 7.1 fl (7.4-10.4); Monocytes # 0.7 K/mm3 (0.1-1.0); Monocytes % 4.6 % (1.7-9.3); Neutrophils # 14.2 K/mm3 (1.8-7.8); Neutrophils % 87.5 % (37.0-80.0); Platelet Count 200 K/mm3 (142-424); Red Blood Count 4.04 M/mm3 (4.60-6.20); Red Cell Distribution Width 18.3 % (11.5-17.5); White Blood Count 16.2 K/mm3 (4.8-10.8)
[2019-10-06 06:35] LABS: Potassium 3.7 mmoL/L (3.5-5.1); Sodium 135 mmol/L (136-145)
[2019-10-06 06:37] LABS: Alanine Aminotransferase 20 U/L (12-78); Alkaline Phosphatase 83 U/L (38-126); Anion Gap 9.7 mEq/L (5-15); Aspartate Amino Transferase 32 U/L (17-59); Bilirubin,Total 1.5 mg/dl (0.2-1.3); Blood Urea Nitrogen 6 mg/dl (9-20); Carbon Dioxide 21 mmol/L (22.0-30.0); Creatinine Clearance Estimated 144 mL/min (50-200); Estimated Glomerular Filt Rate 116 ml/min (>60); GFR (African American) 141 ML/MIN (>60)
[2019-10-06 06:38] LABS: Albumin Level 2.7 g/dl (3.5-5.0); Albumin/Globulin Ratio 0.8 (1.1-1.8); Calcium 7.4 mg/dl (8.4-10.2); Globulin 3.6 g/dL (1.3-3.2); Glucose 136 mg/dl (74-100); Total Protein,Serum 6.3 g/dl (6.3-8.2)
[2019-10-06 06:41] LABS: MANUAL DIFFERENTIAL MANUAL DIFFERENTIAL (MANUAL DIFF)
--- NOTE | 2019-10-06 07:02 | HMH.GSPN ---
Subjective Patient reports: feels better Exam Vital signs and Labs for Last 24 Hours: Temp Pulse Resp BP Pulse Ox 98.2 F 71 16 129/78 96 10/06/19 03:59 10/06/19 03:59 10/06/19 03:59 10/06/19 03:59 10/06/19 03:59 Laboratory Results - last 24 hr 10/05/19 06:37: WBC 8.9, RBC 3.92 L, Hgb 12.8 L D, Hct 38.3 L, MCV 97.7 H, MCH 32.7 H, MCHC 33.4, RDW 18.1 H, Plt Count 187, MPV 6.9 L, Neut % (Auto) 74.7, Lymph % (Auto) 15.8, [place] % (Auto) 7.3, Eos % (Auto) 1.6, Baso % (Auto) 0.7, Neut # (Auto) 6.7, Lymph # (Auto) 1.4, [place] # (Auto) 0.7, Eos # (Auto) 0.1, Baso # (Auto) 0.1 10/05/19 06:37: Sodium 135 L, Potassium 3.3 L D, Chloride 103, Carbon Dioxide 28, Anion Gap 7.3, BUN 10 D, Creatinine 0.80, Estimated Creat Clear 120, Estimated GFR 100, Est GFR ( Amer) 121, Glucose 116 H D, Calcium 7.9 L D, Magnesium 1.7 D, Total Bilirubin 1.6 H, AST 27, ALT 16 D, Alkaline Phosphatase 90, Total Protein 6.4, Albumin 2.8 L D, Globulin 3.6 H, Albumin/Globulin Ratio 0.8 L, Amylase 149 H 10/05/19 06:37: Lipase 276 10/05/19 06:37: SARS-CoV-2 IgG Ab (Rapid) Negative, SARS-CoV-2 IgM Ab (Rapid) Negative 10/06/19 06:12: WBC 16.2 H D, RBC 4.04 L, Hgb 13.3 L, Hct 40.1 L, MCV 99.2 H, MCH 32.9 H, MCHC 33.2, RDW 18.3 H, Plt Count 200, MPV 7.1 L, Neut % (Auto) 87.5 H, Lymph % (Auto) 7.6 L, [place] % (Auto) 4.6, Eos % (Auto) 0.2, Baso % (Auto) 0.1, Neut # (Auto) 14.2 H, Lymph # (Auto) 1.2, [place] # (Auto) 0.7, Eos # (Auto) 0.0, Baso # (Auto) 0.0 10/06/19 06:12: Sodium 135 L, Potassium 3.7, Chloride 108 H, Carbon Dioxide 21 L D, Anion Gap 9.7, BUN 6 L D, Creatinine 0.70, Estimated Creat Clear 144, Estimated GFR 116, Est GFR ( Amer) 141, Glucose 136 H, Calcium 7.4 L, Total Bilirubin 1.5 H, AST 32, ALT 20, Alkaline Phosphatase 83, Total Protein 6.3, Albumin 2.7 L, Globulin 3.6 H, Albumin/Globulin Ratio 0.8 L I & O for Last 24 hours: Intake & Output 10/03/19 10/04/19 10/05/19 10/06/19 11:59 11:59 11:59 11:59 Intake Total 3691 / 3691 5472 / 5472 Balance 3691 / 3691 5472 / 5472 Weight 178 lb 4 oz 184 lb 4 oz 192 lb 14.4 oz - Constitutional no acute distress - *Routine Respiratory Exam Absent: respiratory distress - *Routine Cardiovascular Exam Present: RRR - *Routine Abdominal Exam Present: soft Comments: dressings intact. no erythema. Progress Note: A&P (1) Thickening of wall of gallbladder Status: Acute Current Visit: Yes (2) Cholecystitis Status: Acute Assessment and plan: Overall, doing well status post laparoscopic cholecystectomy Current Visit: Yes (3) Hyperbilirubinemia Status: Acute Current Visit: Yes (4) History of esophageal dilatation Status: Acute Current Visit: Yes (5) Esophagitis Status: Acute Current Visit: No (6) Gastroenteritis Problem details: Resolving, unclear etiology however no further symptoms. Tolerating p.o. intake. Status: Acute Current Visit: No (7) Hypokalemia Problem details: Replace with oral. Initiate multivitamin on discharge Status: Acute Current Visit: No (8) Hypomagnesemia Problem details: Placed via IV. Status: Acute Current Visit: No
[2019-10-06 07:53] LABS: Lymphocytes % 7 % (10-50); Monocytes % 4 % (2-9); Neutrophils % 89 % (42-76); Platelet Estimate Normal; RBC Morphology Normal; Total Cells Counted 100
--- NOTE | 2019-10-06 08:00 | PC.NURSE ---
pt has been instructed by floor staff, and md, about not being allowed to dip and could cause complications with possible egd today. pt stated he understood
--- NOTE | 2019-10-06 08:30 | HMH.ACPN2 ---
Internal Medicine - PN: Subj *Date: 10/06/19 *Time: 08:30 Interval history: Mr. Vazquez is doing okay this morning. Complaining of some abdominal pain after his cholecystectomy. Tolerated the procedure well. N.p.o. this morning for consult for GI. Denies any chest pain, shortness of breath, nausea or vomiting. Dynamically stable. Afebrile. Exam Vital signs and Labs for Last 24 Hours: Temp Pulse Resp BP Pulse Ox 98.2 F 71 16 129/78 96 10/06/19 03:59 10/06/19 03:59 10/06/19 03:59 10/06/19 03:59 10/06/19 03:59 Laboratory Results - last 24 hr 10/06/19 06:12: WBC 16.2 H D, RBC 4.04 L, Hgb 13.3 L, Hct 40.1 L, MCV 99.2 H, MCH 32.9 H, MCHC 33.2, RDW 18.3 H, Plt Count 200, MPV 7.1 L, Neut % (Auto) 87.5 H, Lymph % (Auto) 7.6 L, [place] % (Auto) 4.6, Eos % (Auto) 0.2, Baso % (Auto) 0.1, Neut # (Auto) 14.2 H, Lymph # (Auto) 1.2, [place] # (Auto) 0.7, Eos # (Auto) 0.0, Baso # (Auto) 0.0, Total Counted 100, Neutrophils % (Manual) 89 H, Lymphocytes % (Manual) 7 L, Monocytes % (Manual) 4, Platelet Estimate Normal, RBC Morphology Normal 10/06/19 06:12: Sodium 135 L, Potassium 3.7, Chloride 108 H, Carbon Dioxide 21 L D, Anion Gap 9.7, BUN 6 L D, Creatinine 0.70, Estimated Creat Clear 144, Estimated GFR 116, Est GFR ( Amer) 141, Glucose 136 H, Calcium 7.4 L, Total Bilirubin 1.5 H, AST 32, ALT 20, Alkaline Phosphatase 83, Total Protein 6.3, Albumin 2.7 L, Globulin 3.6 H, Albumin/Globulin Ratio 0.8 L I & O for Last 24 hours: Intake & Output 10/03/19 10/04/19 10/05/19 10/06/19 23:59 23:59 23:59 23:59 Intake Total 1560 / 1560 3991 / 4001 3612 / 3612 Balance 1560 / 1560 3991 / 4001 3612 / 3612 Weight 81 kg 83.574 kg 87.498 kg Narrative: The patient is alert, pleasant. Appears chronically. No acute distress on exam Oropharynx moist, poor dentition. Lungs with smokers rhonchi, but otherwise clear. Abdomen is diffusely tender, surgical trocar insertion sites with clean dry bandages. No rebound or guarding, no CVA tenderness. Heart rate regular, no murmurs. Extremities with swollen joints consistent with his rheumatoid arthritis but no evidence of active infectious synovitis, trace ankle edema. No unusual skin rashes Neurologic exam intact Assessment and Plan (1) Thickening of wall of gallbladder Current visit: Yes Status: Acute Category: Medical Code(s): K82.8 - Other specified diseases of gallbladder (2) Cholecystitis Current visit: Yes Status: Acute Category: Medical Code(s): K81.9 - Cholecystitis, unspecified (3) Hyperbilirubinemia Current visit: Yes Status: Acute Category: Medical Code(s): E80.6 - Other disorders of bilirubin metabolism (4) History of esophageal dilatation Current visit: Yes Status: Acute Category: Medical Code(s): Z98.890 - Other specified postprocedural states (5) Esophagitis Current visit: No Status: Acute Category: Medical Code(s): K20.9 - Esophagitis, unspecified (6) Gastroenteritis Problem details: Resolving, unclear etiology however no further symptoms. Tolerating p.o. intake. Current visit: No Status: Acute Category: Medical Code(s): K52.9 - Noninfective gastroenteritis and colitis, unspecified (7) Hypokalemia Problem details: Replace with oral. Initiate multivitamin on discharge Current visit: No Status: Acute Category: Medical Code(s): E87.6 - Hypokalemia (8) Hypomagnesemia Problem details: Placed via IV. Current visit: No Status: Acute Category: Medical Code(s): E83.42 - Hypomagnesemia - Assessment and plan all Dx Assessment and Plan for all problems:: Status post cholecystectomy. N.p.o. this morning for GI consult for possible EGD given recurrent esophageal stricture. Gradually advance diet once patient able to eat again. Continuing home medication for chronic conditions. Continues to require inpatient management at this time.
--- NOTE | 2019-10-06 11:44 | PC.NURSE ---
pt off floor with or staff
--- NOTE | 2019-10-06 13:26 | HMH.ANESII ---
[facility] Anesthesia Record Part II Discharge Time: 14:15 Destination: floor PACU nurse assessment reviewed?: Yes Patient Condition:: Good Anesthesia Complications:: None Swallowing reflex intact?: Yes Cyanosis?: No Blood Pressure: 130/71 Pulse Rate: 76 Temperature: 98 F Mental Status: Alert & Oriented Pain level:: 5 Nausea and/or vomitting:: None Intake, IV Amount: 1,500
[2019-10-06 13:41] LABS: POC Glucose,Bedside 97 (70-110)
--- NOTE | 2019-10-06 13:56 | HMH.PROC ---
[facility] Procedure Note Procedure Note:: Upper Endoscopy Procedure Report: Esophagogastroduodenoscopy with cold biopsies Endoscopost: Leonidas Collazo II, MD Referring Physician: Too Lau M.D. Date of Procedure: October 06, 2019 Equipment: Olympus GIF 180 standard upper endoscope Sedation: MAC sedation Indications: Mr. Vazquez is a 59-year-old gentleman who underwent cholecystectomy yesterday for severe chronic cholecystitis. The patient was having symptoms and had elevated liver chemistries. He did have gallbladder wall thickening. During this hospitalization, the patient also has had dysphagia. The patient previously had dysphagia and underwent EGD with me in December 2017. At that time he had a Schatzki's ring as well as esophageal candidiasis. The patient has had more significant dysphagia to solids and some odynophagia/painful swallowing. He does get some heartburn, reflux and belching. He has had some hoarseness. Procedure: Prior to the procedure, a history and physical exam was performed, and patient's medications and allergies were reviewed. The risks, benefits and alternatives of the sedation and procedure were discussed with the patient. All questions were answered and informed consent was obtained. The patient was brought to the procedure room. Patient identification and proposed procedure were verified by the physician and the nurse. The patient was placed in a left lateral decubitus position and the scope was passed under direct vision. Throughout the procedure, the patient's blood pressure, pulse, and oxygen saturations were monitored continuously. The upper GI endoscopy was accomplished without difficulty. The patient tolerated the procedure well. Findings: The scope was passed directly into the upper esophagus and advanced to the third portion of the duodenum. The post bulbar duodenum and duodenal bulb were normal with normal mucosa and mild scalloping of the duodenal conniventes. Cold biopsies were taken from the post bulbar duodenum to rule out celiac disease. The scope was withdrawn through a normal duodenal bulb and pylorus into the stomach. There was moderate linear reactive gastropathy with bile reflux as well as some chronic gastritis. Upon retroflexion there was a very small sliding 1 to 2 cm hiatal hernia. 2 biopsies were taken in the antrum and along the lesser curvature for histology to rule out gastritis and/or H pylori. The scope was then withdrawn into the esophagus. There was a serrated Z line but no evidence of reflux esophagitis. There was marked mucosal caking of yellow-whitish plaque circumferentially consistent with marked esophageal candidiasis. Biopsies were taken at the GE junction and biopsies were taken from the midesophagus separately. Impression: 1. Marked esophageal candidiasis (recurrent) 2. Nonerosive GERD 3. Moderate chronic gastritis and linear reactive gastropathy Plan: I will follow-up the biopsies. There is growing Jaan species resistance to ketoconazole. There is little resistance to itraconazole. Additionally, chronic esophageal candidiasis is a risk factor for squamous cell esophageal carcinoma. I would consider repeat surveillance EGD in 2 years. I will follow liver chemistries to see if they have returned to normal.
--- NOTE | 2019-10-06 18:20 | PC.NURSE ---
Addendum entered by Dahlia Philip RN 10/06/19 18:24: pt has c/o pain x1 this shift, adequate relief with prn pain medication. pt has c/o nausea t/o shift multiple times. prn medication given with acceptable relief. Original Note: pt has done well post EGD. he has ambulated to bathroom w/o issues. surgical sites post alexander are cdi. pt experiences nausea and spitting up phlegm after taking po medications. vss. will cont. to monitor.
--- NOTE | 2019-10-06 19:10 | PC.NURSE ---
report given to katya
--- NOTE | 2019-10-06 20:19 | PC.NURSE ---
Assessment completed. Lungs CTA, Heart RRR. Bowel sounds present X4 quadrants. Pt. denies pain. X2 telfa and tegaderm noted to have small amount of serosanguineous drainage noted and marked on site. X3 telfa and tegaderm C/D/I. Pt. sat up at side of bed for medications, and got nauseaous after a dew medications and had moderate amount of emesis, no pills noted in emesis. Zofran given. Pt. tolerated well and was able to swallow medications afterward with no further emesis and nause. Pt. denies further needs, will continue to monitor.
[2019-10-07] VITALS: BP 126/75; PULSE 87; RESP 16; TEMP 37.4; O2SAT 96
[2019-10-07 04:00] VITALS: BP 152/86; PULSE 89; RESP 16; TEMP 37.1; O2SAT 93
--- NOTE | 2019-10-07 04:26 | PC.NURSE ---
Reassessment completed. No acute changes noted. Lungs CTA, Heart at RRR. Bowel sounds present x4 quadrants. Pt. rates pain at 3/10, refuses pain medication at this time. Telfa and tegaderm x5 with no new drainage, dressing remain intact. Pt. denies needs, will continue to monitor.
[2019-10-07 05:00] VITALS: BMI 30.3
--- NOTE | 2019-10-07 07:28 | HMH.DCSUM ---
General - General Admission date:: 10/04/19 Discharge date: 10/07/19 HPI HPI: White male with multiple medical problems including chronic/relapsing alcoholism, history of esophagitis with variceal bleeding status post variceal banding at [facility] many years ago, along with acute alcoholic hepatitis that is improved somewhat with reduction in his drinking. He also has chronic rheumatoid arthritis, on immunosuppressive therapy and is maintained on low-dose chronic opiate therapy for his joint pain given his contraindication to NSAIDs. He has been ill over the past 3-4 days of nausea, severe vomiting and a feeling of food sticking and reflux. Was in the emergency department yesterday, found to be hypokalemic and CT scan showed evidence of cholecystitis. Came to my office on 10/03/2019, and was mildly dehydrated but normal vital signs. I ordered labs this morning as well as a gallbladder ultrasound which revealed ongoing hypokalemia, with poor improvement with replacement with electrolyte containing oral beverages, and continued cholecystitis on gallbladder ultrasound. In the hospital for further evaluation by surgery and GI, also for electrolyte replacement and IV fluid administration. Hospital Course Hospital Course: Patient was admitted, potassium and calcium and acute kidney injury were addressed with IV fluids and electrolyte replacement. Patient improved from this. Surgery was consulted. And although clinical picture was somewhat unusual they were agreed that he would benefit from gallbladder removal. This was done the following day as a laparoscopic procedure and he did indeed do well with this. Surgical findings included a significant scarred, partially necrotic, chronically damaged gallbladder. Patient did well with the surgery, the following day GI saw him, he was subjected EGD, found to have significant candidal esophagitis. Please see reports below in the chart. Findings: The scope was passed directly into the upper esophagus and advanced to the third portion of the duodenum. The post bulbar duodenum and duodenal bulb were normal with normal mucosa and mild scalloping of the duodenal conniventes. Cold biopsies were taken from the post bulbar duodenum to rule out celiac disease. The scope was withdrawn through a normal duodenal bulb and pylorus into the stomach. There was moderate linear reactive gastropathy with bile reflux as well as some chronic gastritis. Upon retroflexion there was a very small sliding 1 to 2 cm hiatal hernia. 2 biopsies were taken in the antrum and along the lesser curvature for histology to rule out gastritis and/or H pylori. The scope was then withdrawn into the esophagus. There was a serrated Z line but no evidence of reflux esophagitis. There was marked mucosal caking of yellow-whitish plaque circumferentially consistent with marked esophageal candidiasis. Biopsies were taken at the GE junction and biopsies were taken from the midesophagus separately. Impression: 1. Marked esophageal candidiasis (recurrent) 2. Nonerosive GERD 3. Moderate chronic gastritis and linear reactive gastropathy Plan: I will follow-up the biopsies. There is growing Jana species resistance to ketoconazole. There is little resistance to itraconazole. Additionally, chronic esophageal candidiasis is a risk factor for squamous cell esophageal carcinoma. I would consider repeat surveillance EGD in 2 years. I will follow liver chemistries to see if they have returned to normal. Documented By: Leonidas Collazo MD 10/06/19 0182 Signed By: <Electronically signed by Leonidas Collazo MD> Patient tolerated the procedure well. That evening was able to eat soft foods and this morning feels much better except for some minor postsurgical pain. Patient will be discharged on itraconazole, his regular medications, close follow-up in my office on Wednesday for
== END 2019-10-07 08:35 | disposition home or self-care (01) ==
LOC: 2ND 08:30
PROVIDERS: Internal Medicine Gastroenterology; Surgery; Admitting Provider Internal Medicine Adolescent Medicine; PCP Internal Medicine Adolescent Medicine; Visit Provider Internal Medicine Adolescent Medicine
PROC: 0FT44ZZ Resection of Gallbladder, Percutaneous Endoscopic Approach (ICD-10-PCS; CPT 47562; principal; 2019-10-05 11:15)
PROC: 0DJ08ZZ Inspection of Upper Intestinal Tract, Via Natural or Artificial Opening Endoscopic (ICD-10-PCS; CPT 43235; principal; 2019-10-06 13:00)
DX: K81.1 Chronic cholecystitis (principal); K42.9 Umbilical hernia without obstruction or gangrene; E86.0 Dehydration; I10 Essential (primary) hypertension; J44.9 Chronic obstructive pulmonary disease, unspecified; E11.9 Type 2 diabetes mellitus without complications; E87.6 Hypokalemia; E83.42 Hypomagnesemia; Z79.899 Other long term (current) drug therapy; M06.9 Rheumatoid arthritis, unspecified; Z79.891 Long term (current) use of opiate analgesic; B37.81 Candidal esophagitis; K21.9 Gastro-esophageal reflux disease without esophagitis; Z79.84 Long term (current) use of oral hypoglycemic drugs; Z95.0 Presence of cardiac pacemaker
CPT/HCPCS: 43239; 47562; 49652; 36415; 76705; 80053; 82150; 82962; 83690; 83735; 85007; 85025; 85610; 86328; 88304; 88305; 93005; G0378; J2405; J2543; J2710

== ENCOUNTER → 2019-10-18 14:39 | Outpatient (CLI) | payer MEDICARE, SELFPAY ==
[2019-10-18 15:32] LABS: Basophils # 0.1 K/mm3 (0-0.2); Basophils % 1.4 % (0.1-2.0); Eosinophils # 0.3 K/mm3 (0.0-0.4); Eosinophils % 4.2 % (0.1-12.0); Hematocrit 38.7 % (42.0-52.0); Hemoglobin 12.9 g/dL (14.1-18.0); Lymphocytes % 37.4 % (10-50); Mean Corpuscular HGB Conc 33.4 g/dL (31.8-35.4); Mean Corpuscular Hemoglobin 32.7 pg (27.0-31.2); Mean Platelet Volume 7.2 fl (7.4-10.4); Monocytes # 0.4 K/mm3 (0.1-1.0); Monocytes % 4.5 % (1.7-9.3); Neutrophils # 4.2 K/mm3 (1.8-7.8); Neutrophils % 52.4 % (37.0-80.0); Platelet Count 269 K/mm3 (142-424); Red Blood Count 3.95 M/mm3 (4.60-6.20); White Blood Count 8.1 K/mm3 (4.8-10.8)
[2019-10-18 15:35] LABS: Chloride 102 mmol/L (98-107); Potassium 4.8 mmoL/L (3.5-5.1); Sodium 136 mmol/L (136-145)
[2019-10-18 15:37] LABS: Blood Urea Nitrogen 9 mg/dl (9-20); Estimated Glomerular Filt Rate 100 ml/min (>60); GFR (African American) 121 ML/MIN (>60)
[2019-10-18 15:38] LABS: Alanine Aminotransferase 13 U/L (12-78); Albumin Level 3.3 g/dl (3.5-5.0); Albumin/Globulin Ratio 0.8 (1.1-1.8); Alkaline Phosphatase 66 U/L (38-126); Anion Gap 9.8 mEq/L (5-15); Aspartate Amino Transferase 22 U/L (17-59); Bilirubin,Total 0.7 mg/dl (0.2-1.3); Calcium 9.1 mg/dl (8.4-10.2); Carbon Dioxide 29 mmol/L (22.0-30.0); Globulin 3.9 g/dL (1.3-3.2); Glucose 109 mg/dl (74-100); Magnesium 1.6 mg/dl (1.6-2.3); Total Protein,Serum 7.2 g/dl (6.3-8.2)
== END ==
PROVIDERS: Visit Provider Internal Medicine Adolescent Medicine
DX: E83.42 Hypomagnesemia (principal); B37.81 Candidal esophagitis
CPT/HCPCS: 36415; 80053; 83735; 85025